=== PATIENT | male | born 1945 | race Caucasian/White ===

== ENCOUNTER → 2018-11-17 10:09 | Outpatient (CLI) | payer MEDICARE, SELFPAY ==
--- NOTE | 2018-11-17 10:12 | CI_ITS ---
Cerebrovascular Exam Indications: Follow-up carotid 433.10. 785.9 Bruit. IMPRESSIONS 1. The bilateral vertebral arteries are patent with normal antegrade flow. 2. Study suggests 50-69% stenosis involving the right internal carotid artery. No change from the study of 23-Dec-2015. 3. Study suggests 50-69% stenosis involving the left internal carotid artery. No change from the study of 23-Dec-2015. History: Risk factors: Hypertension. Hyperlipidemia. Carotid duplex study. Complete study and Doppler flow study including spectral analysis, color and ferro scale imaging. Height: Height: 170.2cm. Height: 67in. Weight: Weight: 89.8kg. Weight: 197.6lb. Body mass index: BMI: 31kg/m^2. Body surface area: BSA: 2.09m^2. Location: Vascular laboratory. Patient status: Outpatient. Tables: Arterial flow: + +--------+--------+ Location V sys V ed + +--------+--------+ Right CCA - proximal 96.3cm/s 12.3cm/s + +--------+--------+ Right CCA - distal 89.6cm/s 19.6cm/s + +--------+--------+ Right ECA 180cm/s 15.1cm/s + +--------+--------+ Right ICA - proximal 78.2cm/s 20.7cm/s + +--------+--------+ Right ICA - mid 177cm/s 46.8cm/s + +--------+--------+ Right ICA - distal 109cm/s 30.7cm/s + +--------+--------+ Right vertebral 39.3cm/s 9.6cm/s + +--------+--------+ Left CCA - proximal 93.3cm/s 23.1cm/s + +--------+--------+ Left CCA - distal 82.1cm/s 21.2cm/s + +--------+--------+ Left ECA 143cm/s 22.6cm/s + +--------+--------+ Left ICA - proximal 125cm/s 31.1cm/s + +--------+--------+ Left ICA - mid 134cm/s 30.4cm/s + +--------+--------+ Left ICA - distal 127cm/s 36.7cm/s + +--------+--------+ Left vertebral 37.4cm/s 13.6cm/s + +--------+--------+ Velocity ratios: + + + + + + Right, V sys Right, V ed Left, V sys Left, V ed + + + + + + Max ICA/dist CCA 1.98 2.39 1.63 1.73 + + + + + + (Report amended ) Electronically signed by: Jovani Helton [id number]
--- NOTE | 2018-11-17 10:12 | CA_ITS ---
PROCEDURE: 2-D M-mode and color Doppler study INDICATIONS FOR THE TEST: Chest pain COPD Heart Murmur Tobacco Smoking Palpitations Fatigue Syncope Edema HypertensionXDiabetes Mellitus Rheumatic Fever SOBXDOE Obesity HyperlipidemiaX Family History HD Additional History ABN EKG PATIENT INFORMATION HEIGHT: 67 WEIGHT:198 GENDER: Male B/P:170/72 2-D/M-MODE INTERPRETATION: 2-D MEASUREMENTS OBSERVED VALUES IN CMS Right Ventricular Dimension (RVDd) 2.8 Interventricular Septum (Thickness)(IVsd) .9 Left Ventricular Internal Dimensions(LVIDd) 5.0 Left Ventricular Posterior Wall (Thickness)(LVPWd) 1.2 Aortic Root 2.8 Aortic Cusp Separation 1.5 Left Atrial Dimensions (LAD) 3.6 2D 1. Left atrium is mildly enlarged, left ventricle is normal size, mild concentric left ventricular hypertrophy, visually estimated ejection fraction 55% with no regional wall motion abnormality. 2. The right atrium and right ventricle are mildly enlarged with normal contractility. 3. The aortic valve is thickened and calcified leaflet continue to display good mobility. 4. The mitral and tricuspid valve leaflets are minimally thickened. 5. The pulmonic valve is poorly visualized. 6. No significant pericardial effusion noted. DOPPLER INTERROGATION: Doppler interrogation of the aortic, mitral and tricuspid valvular presence of mild mitral and tricuspid regurgitation, tricuspid dictation jet velocity is inadequate for calculation of the right ventricular systolic pressure, grade 1 diastolic dysfunction seen with tissue Doppler evidence of raised left atrial pressure. CONCLUSION: 1. Mildly enlarged left atrium, normal left ventricular size, mild concentric left ventricular hypertrophy, visually estimated ejection fraction 55% with no regional wall motion abnormality, grade 1 diastolic dysfunction seen with tissue Doppler evidence of raised left atrial pressure. 2. Mildly enlarged right ventricle with normal contractility. 3. Mild mitral and tricuspid regurgitation 4. No significant pericardial effusion noted.
== END ==
PROVIDERS: PCP Family Medicine; Visit Provider Internal Medicine
DX: E78.5 Hyperlipidemia, unspecified (principal); I11.9 Hypertensive heart disease without heart failure; I25.10 Atherosclerotic heart disease of native coronary artery without angina pectoris; I65.23 Occlusion and stenosis of bilateral carotid arteries; R09.89 Other specified symptoms and signs involving the circulatory and respiratory systems
CPT/HCPCS: 93306; 93880

== ENCOUNTER → 2019-06-30 14:17 | Outpatient (CLI) | payer MEDICARE, SELFPAY ==
--- NOTE | 2019-06-30 14:18 | CA_ITS ---
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 Laterality: Bilateral Study Quality: Good Indications: bilateral ethan Doppler Spectral Velocity Analysis dICA (R) 153.70/39.90 cm/s dICA (L) 111.10/25.30 cm/s Raz (R) 119.70/38.80 cm/s Raz (L) 140.70/24.90 cm/s pICA (R) 141.80/29.50 cm/s pICA (L) 154.80/35.60 cm/s dCCA (R) 84.30/17.90 cm/s dCCA (L) 98.30/17.20 cm/s pCCA (R) 75.30/17.20 cm/s pCCA (L) 113.00/17.50 cm/s Vert (R) 34.30/10.30 cm/s Vert (L) 55.70/16.30 cm/s ICA/CCA 1.80 ICA/CCA 1.60 Findings Duplex evaluation demonstrates stenosis of the right proximal internal carotid artery in the range of 50-69% with PSV =140 cm/sec, EDV <100 cm/sec, and IC/CC Ratio <4.0.Duplex evaluation demonstrates stenosis of the left proximal internal carotid artery in the range of 50-69% with PSV =140 cm/sec, EDV <100 cm/sec, and IC/CC Ratio <4.0.Antegrade flow seen bilateral vertebral arteries.No significant change from last exam of 11/17/18 Conclusion Duplex evaluation demonstrates stenosis of the right proximal internal carotid artery in the range of 50-69% with PSV =140 cm/sec, EDV <100 cm/sec, and IC/CC Ratio <4.0.Duplex evaluation demonstrates stenosis of the left proximal internal carotid artery in the range of 50-69% with PSV =140 cm/sec, EDV <100 cm/sec, and IC/CC Ratio <4.0.Antegrade flow seen bilateral vertebral arteries.No significant change from last exam of 11/17/18 Electronically signed by : Steve Thibodeaux, 06/30/2019 17:19:01
== END ==
PROVIDERS: PCP Family Medicine; Visit Provider Internal Medicine Cardiovascular Disease
DX: R09.89 Other specified symptoms and signs involving the circulatory and respiratory systems (principal)
CPT/HCPCS: 93880

== ENCOUNTER → 2020-02-11 09:40 | Outpatient (CLI) | payer MEDICARE, SELFPAY ==
[2020-02-11 10:30] LABS: Basophils % 0.5 % (0.1-2.0); Eosinophils # 0.3 K/mm3 (0.0-0.4); Eosinophils % 4.7 % (0.1-12.0); Hematocrit 36.8 % (42.0-52.0); Hemoglobin 12.8 g/dL (14.1-18.0); Lymphocytes # 1.3 K/mm3 (0.7-4.5); Lymphocytes % 22.7 % (10-50); Mean Corpuscular HGB Conc 34.7 g/dL (31.8-35.4); Mean Corpuscular Hemoglobin 29.8 pg (27.0-31.2); Mean Corpuscular Volume 85.9 fl (80-94); Mean Platelet Volume 8.7 fl (7.4-10.4); Monocytes # 0.4 K/mm3 (0.1-1.0); Monocytes % 7.8 % (1.7-9.3); Neutrophils # 3.6 K/mm3 (1.8-7.8); Neutrophils % 64.3 % (37.0-80.0); Platelet Count 140 K/mm3 (142-424); Red Blood Count 4.29 M/mm3 (4.60-6.20); Red Cell Distribution Width 14.8 % (11.5-17.5); White Blood Count 5.6 K/mm3 (4.8-10.8)
[2020-02-11 11:16] LABS: Alanine Aminotransferase 26 U/L (12-78); Albumin Level 4.1 g/dl (3.5-5.0); Albumin/Globulin Ratio 1.6 (1.1-1.8); Alkaline Phosphatase 69 U/L (38-126); Anion Gap 13.3 mEq/L (5-15); Aspartate Amino Transferase 26 U/L (17-59); Bilirubin,Total 0.4 mg/dl (0.2-1.3); Blood Urea Nitrogen 23 mg/dl (9-20); Calcium 9.2 mg/dl (8.4-10.2); Carbon Dioxide 27 mmol/L (22.0-30.0); Chloride 106 mmol/L (98-107); Chol/HDL Ratio 3.3 (1-3.5); Cholesterol 111 mg/dl (140-200); Estimated Glomerular Filt Rate 59 ml/min (>60); GFR (African American) 71 ML/MIN (>60); Globulin 2.6 g/dL (1.3-3.2); Glucose 125 mg/dl (74-100); HDL Cholesterol 34 mg/dl (40-60); Potassium 4.3 mmoL/L (3.5-5.1); Sodium 142 mmol/L (136-145); Total Protein,Serum 6.7 g/dl (6.3-8.2); Triglycerides 76 mg/dl (30-150); VLDL Cholesterol 15 mg/dL (0-40)
[2020-02-11 11:27] LABS: Direct LDL Cholesterol 63.25 mg/dL (100-129)
[2020-02-11 11:47] LABS: Prostate Specific Ag Screen 1.2 ng/ml (0.0-4.0); Thyroid Stimulating Hormone 1.29 uIU/mL (0.465-4.68)
== END ==
PROVIDERS: Visit Provider Family Medicine
DX: I10 Essential (primary) hypertension (principal); E78.5 Hyperlipidemia, unspecified; I25.10 Atherosclerotic heart disease of native coronary artery without angina pectoris; G47.62 Sleep related leg cramps; N40.0 Benign prostatic hyperplasia without lower urinary tract symptoms; Z12.5 Encounter for screening for malignant neoplasm of prostate
CPT/HCPCS: 36415; 80053; 80061; 84443; 85025; G0103

== ENCOUNTER → 2020-08-05 14:50 | Outpatient (CLI) | payer MEDICARE, SELFPAY ==
--- NOTE | 2020-08-05 14:51 | CA_ITS ---
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: JOHNATHON Laterality: Bilateral Indications: RHETT Risk Factors Hypertension: Hyperlipidemia Ex smoker quit 25 years ago, CAD with 4 cardiac stents Doppler Spectral Velocity Analysis ECA (R) 217.30/15.30 cm/s ECA (L) 133.70/10.70 cm/s dICA (R) 127.00/31.70 cm/s dICA (L) 83.50/20.50 cm/s Raz (R) 129.30/25.90 cm/s Raz (L) 125.10/17.10 cm/s pICA (R) 158.70/37.60 cm/s pICA (L) 144.40/36.40 cm/s dCCA (R) 99.40/17.10 cm/s dCCA (L) 89.10/18.00 cm/s pCCA (R) 76.40/9.00 cm/s pCCA (L) 109.70/18.80 cm/s Vert (R) 30.50/7.50 cm/s Vert (L) 51.40/13.70 cm/s ICA/CCA 1.60 ICA/CCA 1.62 Findings Duplex evaluation demonstrates stenosis of the right proximal internal carotid artery in the range of 50-69% with PSV =140 cm/sec, EDV <100 cm/sec, and IC/CC Ratio <4.0. Duplex evaluation demonstrates stenosis of the left proximal internal carotid artery in the range of 50-69% with PSV =140 cm/sec, EDV <100 cm/sec, and IC/CC Ratio <4.0. Conclusion Duplex evaluation demonstrates stenosis of the right proximal internal carotid artery in the range of 50-69% with PSV =140 cm/sec, EDV <100 cm/sec, and IC/CC Ratio <4.0. Duplex evaluation demonstrates stenosis of the left proximal internal carotid artery in the range of 50-69% with PSV =140 cm/sec, EDV <100 cm/sec, and IC/CC Ratio <4.0. Electronically signed by : Jovani Helton MD 08/05/2020 17:57:02
== END ==
PROVIDERS: PCP Family Medicine; Visit Provider Internal Medicine Cardiovascular Disease
DX: I65.23 Occlusion and stenosis of bilateral carotid arteries; R09.89 Other specified symptoms and signs involving the circulatory and respiratory systems; R94.31 Abnormal electrocardiogram [ECG] [EKG]; E78.5 Hyperlipidemia, unspecified; I11.9 Hypertensive heart disease without heart failure; I25.10 Atherosclerotic heart disease of native coronary artery without angina pectoris
CPT/HCPCS: 93880

== ENCOUNTER → 2020-09-01 11:05 | Outpatient (CLI) | payer MEDICARE, SELFPAY ==
[2020-09-01 12:01] LABS: Hemoglobin A1C 5.9 % (4.0-6.0)
[2020-09-01 12:07] LABS: Microalbumin < 6.000 mg/L (0-16.7)
[2020-09-01 12:44] LABS: Chloride 108 mmol/L (98-107); Potassium 4.2 mmoL/L (3.5-5.1); Sodium 142 mmol/L (136-145)
[2020-09-01 12:46] LABS: Alanine Aminotransferase 24 U/L (12-78); Aspartate Amino Transferase 25 U/L (17-59); Blood Urea Nitrogen 17 mg/dl (9-20); Estimated Glomerular Filt Rate 73 ml/min (>60); GFR (African American) 88 ML/MIN (>60)
[2020-09-01 12:47] LABS: Albumin Level 4.5 g/dl (3.5-5.0); Albumin/Globulin Ratio 1.8 (1.1-1.8); Alkaline Phosphatase 70 U/L (38-126); Anion Gap 13.2 mEq/L (5-15); Bilirubin,Total 0.6 mg/dl (0.2-1.3); Calcium 9.3 mg/dl (8.4-10.2); Carbon Dioxide 25 mmol/L (22.0-30.0); Chol/HDL Ratio 3.9 (1-3.5); Cholesterol 146 mg/dl (140-200); Globulin 2.5 g/dL (1.3-3.2); Glucose 116 mg/dl (74-100); HDL Cholesterol 37 mg/dl (40-60); Magnesium 1.9 mg/dl (1.6-2.3); Triglycerides 106 mg/dl (30-150); VLDL Cholesterol 21 mg/dL (0-40)
[2020-09-01 12:58] LABS: Direct LDL Cholesterol 75.64 mg/dL (100-129)
== END ==
PROVIDERS: Visit Provider Family Medicine
DX: Z00.00 Encounter for general adult medical examination without abnormal findings (principal); I25.10 Atherosclerotic heart disease of native coronary artery without angina pectoris; I10 Essential (primary) hypertension; E78.5 Hyperlipidemia, unspecified; Z79.899 Other long term (current) drug therapy
CPT/HCPCS: 36415; 80053; 80061; 82043; 83036; 83735

== ENCOUNTER → 2021-03-02 12:57 | Outpatient (CLI) | payer MEDICARE, SELFPAY ==
--- NOTE | 2021-03-02 12:59 | CA_ITS ---
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 [employer] Operator: Sandrine Wolf RVT Laterality: Bilateral Study Quality: Good Indications: Carotid stenosis Risk Factors Hypertension: Hyperlipidemia EX SMOKER,CAD Doppler Spectral Velocity Analysis ECA (R) 237.10/19.50 cm/s ECA (L) 165.70/9.60 cm/s dICA (R) 188.10/44.70 cm/s dICA (L) 181.80/24.60 cm/s Raz (R) 191.70/31.70 cm/s Raz (L) 146.40/21.20 cm/s pICA (R) 98.40/24.60 cm/s pICA (L) 107.90/22.20 cm/s dCCA (R) 85.50/11.80 cm/s dCCA (L) 85.70/12.50 cm/s pCCA (R) 68.40/10.70 cm/s pCCA (L) 67.40/10.60 cm/s Vert (R) 30.70/14.10 cm/s Vert (L) 46.00/13.90 cm/s ICA/CCA 2.20 ICA/CCA 2.12 Findings Study suggests 50-69% stenosis of the right internal cartoid artery. Study suggests 50-69% stenosis of the left internal cartoid artery. Antegrade flow seen bilateral vertebral arteries. Conclusion Study suggests 50-69% stenosis of the right internal cartoid artery. Study suggests 50-69% stenosis of the left internal cartoid artery. Antegrade flow seen bilateral vertebral arteries. Electronically signed by : Jovani Helton MD 03/02/2021 16:36:37
== END ==
PROVIDERS: PCP Family Medicine; Visit Provider Internal Medicine Cardiovascular Disease
DX: E78.5 Hyperlipidemia, unspecified (principal); I11.9 Hypertensive heart disease without heart failure; I25.10 Atherosclerotic heart disease of native coronary artery without angina pectoris; R09.89 Other specified symptoms and signs involving the circulatory and respiratory systems; R94.31 Abnormal electrocardiogram [ECG] [EKG]; I65.23 Occlusion and stenosis of bilateral carotid arteries
CPT/HCPCS: 93880

== ENCOUNTER → 2021-05-09 13:59 | Outpatient (CLI) | payer MEDICARE, SELFPAY | PROVIDERS: PCP Family Medicine; Visit Provider Nurse Practitioner | DX: Z20.822 Contact with and (suspected) exposure to COVID-19 (principal) | CPT/HCPCS: C9803; U0003; U0005 ==

== ENCOUNTER → 2021-07-04 15:53 | Outpatient (CLI) | payer MEDICARE, SELFPAY | PROVIDERS: PCP Family Medicine; Visit Provider Nurse Practitioner | DX: U07.1 COVID-19 (principal) | CPT/HCPCS: C9803; U0003; U0005 ==

== ENCOUNTER → 2021-11-02 12:51 | Outpatient (CLI) | payer MEDICARE, SELFPAY ==
--- NOTE | 2021-11-02 12:59 | CA_ITS ---
FINAL REPORT TECHNIQUE: Sen scale, color and spectral doppler images of the bilateral carotid arteries were obtained. CLINICAL HISTORY: RHETT,HTN,HLD,EX SMOKER FINDINGS: Peak systolic velocity in the right internal carotid artery is 165 cm/sec. The internal carotid to common carotid artery ratio is 2.0. There is no significant carotid artery stenosis and no significant plaque formation. The right vertebral artery is normal in direction. Peak systolic velocity in the left internal carotid artery is 206 cm/sec. The internal carotid to common carotid artery ratio is 2.1. There is no significant carotid artery stenosis and no significant plaque formation. The left vertebral artery is normal in direction. IMPRESSION: Less than 50% right carotid stenosis. 50-69% left carotid stenosis. Reviewed, Interpreted and Dictated by Lelia Ramirez MD Transcribed by John Wilson Authenticated by Lelia Ramirez MD on 11/02/2021 02:56:14 PM [facility]
== END ==
PROVIDERS: PCP Family Medicine; Visit Provider Physician Assistant
DX: E78.5 Hyperlipidemia, unspecified (principal); I11.9 Hypertensive heart disease without heart failure; I25.10 Atherosclerotic heart disease of native coronary artery without angina pectoris; R09.89 Other specified symptoms and signs involving the circulatory and respiratory systems; R94.31 Abnormal electrocardiogram [ECG] [EKG]; I65.23 Occlusion and stenosis of bilateral carotid arteries
CPT/HCPCS: 93880

== ENCOUNTER → 2022-04-17 11:31 | Outpatient (CLI) | payer MEDICARE, SELFPAY ==
--- NOTE | 2022-04-17 11:36 | XR_ITS ---
FINAL REPORT CLINICAL HISTORY: PAIN FINDINGS: LEFT SHOULDER Three views of the left shoulder were obtained. There is no acute fracture or dislocation. The joint spaces are intact. There is no soft tissue abnormality. IMPRESSION: No acute bony abnormality. Reviewed, Interpreted and Dictated by Angel Cisneros MD Transcribed by Batsheva Parkinson Authenticated and [facility]
== END ==
LOC: RAD 11:33
PROVIDERS: PCP Family Medicine; Visit Provider Nurse Practitioner Family
DX: M25.512 Pain in left shoulder (principal)
CPT/HCPCS: 73030

== ENCOUNTER → 2022-05-01 10:46 | Outpatient (POV) | payer MEDICARE, SELFPAY | PROVIDERS: Visit Provider Dermatology | DX: Z00.00 Encounter for general adult medical examination without abnormal findings (principal) ==

== ENCOUNTER → 2022-12-27 10:18 | Outpatient (CLI) | payer MEDICARE, SELFPAY ==
--- NOTE | 2022-12-27 10:39 | CA_ITS ---
FINAL REPORT TECHNIQUE: Sen scale, color and spectral doppler images of the bilateral carotid arteries were obtained. CLINICAL HISTORY: RHETT COMPARISON: None FINDINGS: Peak systolic velocity in the right internal carotid artery is 149.3 cm/sec. The internal carotid to common carotid artery ratio is 2.12. There is moderate plaque formation present. The elevated velocities and plaque formation suggest 50 to 69% carotid artery stenosis. The right vertebral artery is normal in direction. Peak systolic velocity in the left internal carotid artery is 166.8 cm/sec. The internal carotid to common carotid artery ratio is 2.41. There is moderate plaque formation present. The elevated velocities and elevated velocities suggest 50 to 69% carotid artery stenosis. The left vertebral artery is normal in direction. IMPRESSION: There are elevated peak systolic velocities, ICA/ CCA ratios and moderate plaque present, most consistent with bilateral 50 to 69% carotid artery stenosis. Antegrade flow in the vertebral arteries bilaterally. Reviewed, Interpreted and Dictated by Lelia Ramirez MD Transcribed by Kirsten Guy Authenticated and [facility]
[2022-12-27 11:01] LABS: Hemoglobin A1C 5.7 % (4.0-6.0)
[2022-12-27 12:05] LABS: Alanine Aminotransferase 24 U/L (12-78); Albumin Level 4.3 g/dl (3.5-5.0); Albumin/Globulin Ratio 1.7 (1.1-1.8); Alkaline Phosphatase 85 U/L (38-126); Anion Gap 13.3 mEq/L (5-15); Aspartate Amino Transferase 22 U/L (17-59); Bilirubin,Total 0.4 mg/dl (0.2-1.3); Blood Urea Nitrogen 23 mg/dl (9-20); Calcium 9.1 mg/dl (8.4-10.2); Carbon Dioxide 25 mmol/L (22.0-30.0); Chloride 110 mmol/L (98-107); Chol/HDL Ratio 4.2 (1-3.5); Cholesterol 123 mg/dl (140-200); Estimated Glomerular Filt Rate 59 ml/min (>60); GFR (African American) 71 ML/MIN (>60); Globulin 2.5 g/dL (1.3-3.2); Glucose 110 mg/dl (74-100); HDL Cholesterol 29 mg/dl (40-60); Potassium 4.3 mmoL/L (3.5-5.1); Sodium 144 mmol/L (136-145); Total Protein,Serum 6.8 g/dl (6.3-8.2); Triglycerides 134 mg/dl (30-150); VLDL Cholesterol 27 mg/dL (0-40)
[2022-12-27 12:16] LABS: Direct LDL Cholesterol 65.34 mg/dL (100-129)
== END ==
PROVIDERS: PCP Family Medicine; Visit Provider Nurse Practitioner Family
DX: R73.9 Hyperglycemia, unspecified (principal); E78.5 Hyperlipidemia, unspecified; I11.9 Hypertensive heart disease without heart failure; I25.10 Atherosclerotic heart disease of native coronary artery without angina pectoris; R09.89 Other specified symptoms and signs involving the circulatory and respiratory systems; R94.31 Abnormal electrocardiogram [ECG] [EKG]; I65.23 Occlusion and stenosis of bilateral carotid arteries
CPT/HCPCS: 36415; 80053; 80061; 83036; 93880

== ENCOUNTER → 2023-04-01 17:32 | Outpatient (CLI) | payer MEDICARE, SELFPAY ==
--- NOTE | 2023-04-01 17:39 | XR_ITS ---
PROCEDURE INFORMATION: Exam: XR Left Shoulder Exam date and time: 04/01/2023 5:35 PM Age: 78 years old Clinical indication: Pain; Shoulder; Left TECHNIQUE: Imaging protocol: Radiologic exam of the left shoulder. Views: 2 or more views. COMPARISON: CR XR SHOULDER LT MIN 2V 04/17/2022 11:59 AM FINDINGS: Bones/joints: No acute fracture or malalignment. Glenohumeral and acromioclavicular joint degenerative changes. Soft tissues: Normal. IMPRESSION: No acute osseous findings.
--- NOTE | 2023-04-01 17:39 | XR_ITS ---
PROCEDURE INFORMATION: Exam: XR Lumbosacral Spine Exam date and time: 04/01/2023 5:31 PM Age: 78 years old Clinical indication: Low back pain TECHNIQUE: Imaging protocol: Radiologic exam of the lumbosacral spine. Views: 2 or 3 views. COMPARISON: No relevant prior studies available. FINDINGS: Bones/joints: No acute fracture. Minimal leftward curvature. Multilevel degenerative changes, severe at the lower lumbar levels. Soft tissues: Unremarkable. Vasculature: Abdominal aortic calcification. IMPRESSION: 1. No acute findings. 2. Multilevel spondylosis.
== END ==
PROVIDERS: PCP Family Medicine; Visit Provider Family Medicine
DX: M75.52 Bursitis of left shoulder (principal)
CPT/HCPCS: 72100; 73030

== ENCOUNTER 2024-04-10 14:54 | Outpatient (CLI) | payer MEDICARE, SELFPAY ==
--- OUTSIDE RECORDS SUMMARY | 2024-04-10 14:56 | XMS_ITS ---
Author Organization [facility] Address [address] [facility] [address] [facility] [address] [place] [id number] Care Team Providers Care Machine Room Engineer Name Role Phone Gaby Harris Primary Care Provider REASON FOR VISIT Message MEDICATIONS Medication SIG (Take, Route, Frequency, Duration) Notes Start Date End Date Status Promethazine-DM 6.25-15 MG/5ML 10 ml Orally every 6 hrs prn 02/18/2024 Active Encounters Encounter Location Date Provider Diagnosis [facility] [address] [facility] [address] [facility] [address] [place] [id number] 02/18/2024 Gaby Harris PLAN OF TREATMENT Medication Medication Name Sig Start Date Stop Date Notes Promethazine-DM 6.25-15 MG/5ML 10 ml Ora lly every 6 hrs prn 02/18/2024 Next Appt Details Provider Name:Dianna sky, 04/10/2024 02:00:00 PM, [address] [facility] [address] [facility], [address], [place], [phone],
--- OUTSIDE RECORDS SUMMARY | 2024-04-10 14:56 | XMS_ITS ---
Author Organization [facility] Address [address] [facility] [address] [facility] [address] [place] [id number] Care Team Providers Care Wind Operations Manager Name Role Phone Gaby Harris Primary Care Provider Dianna London [phone] ALLERGIES Allergen (clinical drug ingredient) Drug/Non Drug Allergy documented on EMR Reaction Allergy Type Onset Date Status polymyxin B Polymyxin B rash Drug Allergy Act nigel REASON FOR VISIT congestion Encounters Encounter Location Date Provider Diagnosis [facility] [address] [facility] [address] [facility] [address] [place] [phone] 03/06/2024 Dianna London PLAN OF TREATMENT Next Appt Details Provider Name:Dianna sky, 04/10/2024 02:00:00 PM, [address] [facility] [address] [facility], [address], [place], [phone],
--- OUTSIDE RECORDS SUMMARY | 2024-04-10 14:56 | XMS_ITS ---
Author Organization [facility] Address [address] [facility] [address] [place] [id number] Care Team Providers Care Traffic Analysis Technician Name Role Phone aGby Harris Primary Care Provider Surya Dianna Unavailable [phone] ALLERGIES Allergen (clinical drug ingredient) Drug/Non Drug Allergy documented on EMR Reaction Allergy Type Onset Date Status polymyxin B Polymyxin B rash Drug Allergy Act nigel REASON FOR VISIT pain in hip MEDICATIONS Medication SIG (Take, Route, Frequency, Duration) Notes Start Date End Date Status Lisinopril 20 MG 1 tab(s) orally once a day Active Carvedilol 6.25 MG 1 tab(s) orally 2 ti mes a day Active Terazosin HCl 10 MG TAKE 1 CAPSULE AT BE DTIME for 90 days Active rOPINIRole HCl 1 MG 1 tab(s) orally At B ed Time for 30 day(s) 05/24/2022 Active Pantoprazole Sodium 40 [...] MG 1 capsule Ora lly Once a day for 30 day(s) Active tiZANidine HCl 4 MG 1 tab(s) orally At B ed Time for 30 day(s) 08/07/2022 Active Fexofenadine HCl 180 MG 1 tablet swallow whole with water; do not take with fruit juices. Orally Once a day for 30 day(s) 09/13/2023 Active Flonase Allergy Relief 50 MCG/ACT 1 spray in each nostril Nasally Once a day for 30 day(s) 01/21/2023 Active PROBLEMS Problem Type ICD Code Onset Dates Problem Status W/U Status Risk SNOMED Code Notes Problem Lumbar back pain with radiculopathy affecting left lower extremity (M54.16) Active confirmed [id number] Problem Non-seasonal allergic rhinitis, unspecified trigger (J30.89) Active confirmed [id number] VITAL SIGNS Weight 214.2 lbs 04/10/2024 Blood pressure systolic 134 mm Hg 04/10/20 24 Blood pressure diastolic 60 mm Hg 024 Heart Rate 80 /min 04/10/2024 Height 66 in 04/10/2024 BMI 34.57 kg/m2 04/10/2024 Encounters Encounter Location Date Provider Diagnosis [facility] [address] [facility] [address] [place], [place] [id number] 04/10/2024 Dianna London Unspecified fall, in itial encounter W19.XXXA ; Lumbar back pain with radiculopathy affecting left lower extremity M54.16 ; Hip pain, left M25.552 ; Bony pelvic pain M89.8X8 and Non-seasonal allergic rhinitis, unspecified trigger J30.89 ASSESSMENTS Encounter Date Diagnosis Assessment Notes Treatment Notes Treatment Clinical Notes 04/10/2024 Unspecified fall, initial encounter (ICD-10 - W19.XXXA) 04/10/2024 Lumbar back pain wit h radiculopathy affecting left lower extremity (ICD-10 - M54.16) 04/10/2024 Hip pain, left (ICD-10 - M25.552) 04/10/2024 Bony pelvic pain (ICD-10 - M89.8X8) 04/10/2024 Non-seasonal allergi c rhinitis, unspecified trigger (ICD-10 - J30.89) PLAN OF TREATMENT Medication Medication Name Sig Start Date Stop Date Notes Fexofenadine HCl 180 MG 1 tablet swallow whole with water; do not take with fruit juices. Orally Once a day for 30 day(s) 09/13/2023 Flonase Allergy Relief 50 MCG/ACT 1 spray in each nostril Nasally Once a day for 30 day(s) 01/21/2023 Pending Test Test Name Order Date X ray : Spine, lumbar 04/10/2024 X ray : Hip, left 04/10/2024 X ray : Pelvis 04/10/2024 X ray : Spine, sacrum and coccyx 024 Next Appt Details Provider Name:Dianna sky, 04/10/2024 02:00:00 PM, [address] [facility] [address] [facility], [address] , [place], [place], [id number], History and Physical Notes * HPI (History of Present Illness) Category Sub-Category Detail Notes Hip/Thigh hip pain Pt is here today with c/o hip pain and leg pain. Pt sts both of his legs and hips have been in pain and sts it goes back and forth between each side. Pt sts he fell in the bed of his truck 2 months ago and sts he may have bruised his tailbone pt sts the pain in his leg has been ongoing for a while now
--- OUTSIDE RECORDS SUMMARY | 2024-04-10 14:57 | XMS_ITS | Patient Health Record ---
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 Gr. 1.020 Ketone neg Bili neg Gluc neg bacteria WBC RBC CBC Fingerstick (in house) Reviewed date:09/13/2023 04:21:39 PM Interpretation: Performing Lab: Notes/Report: wbc 5.9 3.5 - 10 lym 21.8 15 - 50 mid 6.4 2 - 15 gran 71.8 35 - 80 rbc 3.82 3.5 - 5.5 hgb 11.5 11.5 - 16.5 hct 34.2 35 - 55 mcv 89.5 75 - 100 mch 30.2 25 - 35 mchc 33.7 31 - 38 plat 119 100 - 400 P-Comprehensive Metabolic Pa shamar (CMP) Reviewed date:09/20/2023 09:14:29 AM Interpretation:gluc 103, Ca 8.3 Performing Lab: Notes/Report: Test performed by [facility], [facility] [address] [place] [address] , [address], [place] [address] John Saleh MD, Job Compositor CLIA: [id number] Sodium 144 135-145 mEq/L Potassium 4.5 3.5-5.3 mEq/L Chloride 108 97-108 mEq/L CO2 26 22-32 mEq/L Glucose 103 65-99 mg/dL BUN 21 8-23 mg/dL Creatinine 1.19 0.70-1.30 mg/dL Calcium 8.3 8.6-10.4 mg/dL eGFR by Creatinine 62 >59 mL/min/1.73m2 Protein 6.6 6.0-8.3 g/dL Albumin 4.4 3.5-5.3 g/dL Alkaline Phosphatase 65 40-129 IU/L ALT (SGPT) 19 <5-55 IU/L AST (SGOT) 22 <5-46 IU/L Bilirubin, Total 0.3 <0.2-1.2 mg/dL A/G Ratio 2.0 1.1-2.5 mg/dL P-Magnesium Reviewed date:09/20/2023 09:14:29 AM Interpretation:Normal Performing Lab: Notes/Report: Test performed by [facility] [address] [place] [address] , [address], [place] [address] John Saleh MD, Job Compositor CLIA: [id number] Magnesium 1.9 1.6-2.4 mg/dL P-TSH Reviewed date:09/20/2023 09:14:29 AM Interpretation:Normal Performing Lab: Notes/Report: Test performed by [facility] [address] [place] [address] , [address], [place] [address] John Saleh MD, Job Compositor CLIA: [id number] TSH 1.59 0.43-5.25 mU/L Covid test (in house) Reviewed date:02/11/2024 03:12:07 PM Interpretation:Positive Performing Lab: Notes/Report: Positive Result: pos CBC Fingerstick (in house) Reviewed date:07/01/2023 04:45:11 PM Interpretation: Performing Lab: Notes/Report: wbc 8.8 3.5 - 10 lym 14.0 15 - 50 mid 4.1 2 - 15 gran 81.9 35 - 80 rbc 3.61 3.5 - 5.5 hgb 11.1 11.5 - 16.5 hct 31.8 35 - 55 mcv 87.8 75 - 100 mch 30.7 25 - 35 mchc 34.9 31 - 38 plat 109 100 - 400 REASON FOR REFERRAL Diagnosis 1 Hesitancy of micturi tion (R39.11) Referral Organization [facility] Referring Provider First Name Dianna Referring Provider Last Name Surya 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 Referred Provider Specialty Urology General Notes Dianna London 2023 4:30:11 PM > Pt needs appt with urology at [facility], Stephanie Carvajal 09/16/2023 10:16:24 AM > Dr Bishop September 22 at 1:00 pt informed Referral Priority Routine MEDICATIONS Medication SIG (Take, Route, Frequency, Duration) Notes Start Date End Date Status Lisinopril 20 MG 1 tab(s) orally once a day Active Carvedilol 6.25 MG 1 tab(s) orally 2 ti mes a day Active Terazosin HCl 10 MG [facility] Active Metoprolol Succinate 25 MG 1 capsule Ora lly Once a day for 30 day(s) Active rOPINIRole HCl 1 MG 1 tab(s) orally At B ed Time for 30 day(s) 05/24/2022 Active Vitamin B Complex - as directed Orally Active tiZANidine HCl 4 MG 1 tab(s) orally At B ed Time for 30 day(s) 08/07/2022 Active Magnesium 200 MG 1 tab Orally Once a day Active Probiotic - as directed Orally Active Atorvastatin Calcium 80 MG 1 tab(s) oral ly once a day Active Fexofenadine HCl 180 MG 1 tablet swallow whole with water; do not take with fruit juices. Orally Once a day for 30 day(s) 09/13/2023 Active Flonase Allergy Relief 50 MCG/ACT 1 spray in each nostril Nasally Once a day for 30 day(s) 01/21/2023 Active Pantoprazole Sodium 40 MG 1 tab(s) orall y once a day Active Clopidogrel Bisulfate 75 MG 1 tab(s) ora lly once a day Active IMMUNIZATIONS Vaccine Route Administration Date Status Comme nts COVID 19 Pfizer Unknown 08/18/2020 Administered COVID 19 Pfizer IM Intramuscular 09/18/2020 Administered COVID 19 Pfizer Unknown 04/26/2021 Administered DT, 7 YEARS OR OLDER Unknown 08/12/1996 Administered Fluzone High Dose (65yr and older) Unknown 03/31/2020 Administered Fluzone High Dose (65yr and older) Unknown 04/19/2022 Administered Fluzone High Dose (65yr and older) Unknown 02/27/2023 Administered Shingrix Unknown 11/28/2022 Administered xFluzone (6mos and older)-trivalent Unknown 05/22/2018 Administered xFluzone High Dose-private (65yr&older) Unknown 03/16/2016 Administered SOCIAL HISTORY Sex Assigned At : Social History Observation Description Sex Assigned At Unknown PROBLEMS Problem Type ICD Code Onset Dates Problem Status W/U Status Risk SNOMED Code Notes Problem ASCVD (arteriosclerotic cardiovascular disease) (I25.10) Active confirmed Coronary arteriosclerosis (53044184) Problem Hypertension (I10) Active confirmed Hypertension (44954276) Problem Restless leg syndrome (G25.81) Active confirmed Restless l egs syndrome (94159790) Problem BPH (benign prostatic hyperplasia) (N40.0) Active confirmed Benign prostati c hyperplasia (017495432) Problem Nocturnal leg cramps (G47.62) Active confirmed Cramp in low er leg associated with rest (199074426) Problem Environmental allergies (Z91.09) Active confirmed Environmental allergy (069561266) Problem Lumbago with sciatica, right side (M54.41) Active confirmed 793111647 Problem Hesitancy of micturition (R39.11) Active confirmed 0271412 Problem GERD without esophagitis (K21.9) Active confirmed Gastroesophagea l reflux disease (244565150) Problem Other chronic pain (G89.29) Active confirmed 06877971 Problem Constipation, unspecified constipation type (K59.00) Active confirmed 77016429 Problem Seasonal rhinitis (J30.2) Active confirmed Seasonal allerg ic rhinitis (288503067) Problem BMI 31.0-31.9,adult (Z68.31) Active confirmed 407376276 Problem Dyslipidemia (E78.5) Active confirmed Dyslipidemia (983105808) Problem Benign prostatic hyperplasia with lower urinary tract symptoms (N40.1) Active confirmed 641047278 Problem Seasonal allergic rhinitis, unspecified trigger (J30.2) Active confirmed 004808556 Problem Non-seasonal allergic rhinitis, unspecified trigger (J30.89) Active confirmed 22647385 Problem Lumbar back pain with radiculopathy affecting left lower extremity (M54.16) Active confirmed 256150222 Problem Asymptomatic bilateral carotid artery stenosis (I65.23) Active confirmed Occlusion and stenosis of multiple and bilateral cerebral arteries (143429023) VITAL SIGNS Heart Rate 80 /min 04/10/2024 Blood pressure diastolic 60 mm Hg 04/10/2024 Height 66 in 04/10/2024 Blood pressure systolic 134 mm Hg 04/10/2024 Weight 214.2 lbs 04/10/2024 BMI 34.57 kg/m2 04/10/2024 Encounters Encounter Location Date Provider Diagnosis [facility] [address] [place], [place] [id number] 04/11/2023 R Jose Steven Restless leg syndrom e G25.81 [facility] [address] [place], [place] [id number] 05/09/2023 Toyin Montgomery [facility] [address] [place], [place] [id number] 07/01/2023 Shayna Levy URI (upper respirato ry infection) J06.9 [facility] [address] [place], [place] [id number] 09/13/2023 Dianna Crowdy Leg cramps R25.2 ; Seasonal allergic rhinitis, unspecified trigger J30.2 ; BPH (benign prostatic hyperplasia) N40.0 and Hesitancy of micturition R39.11 [facility] [address] [place], [place] [id number] 09/20/2023 Dianna Crowdy [facility] [address] [place], [place] [id number] 11/22/2023 R Jose Steven Leg cramps R25.2 [facility] [address] [place], [place] [id number] 02/11/2024 R Jose Steven COVID-19 virus infection U07.1 [facility] [address] [facility] [address] [place], [place] [id number] 02/18/2024 Gaby Harris [facility] [address] [place], [place] [id number] 03/06/2024 Dianna London [facility] [address] [facility] [address] [place], [place] [id number] 04/10/2024 Dianna London Unspecified fall, initial encounter W19.XXXA ; Lumbar back pain with radiculopathy affecting left lower extremity M54.16 ; Hip pain, left M25.552 ; Bony pelvic pain M89.8X8 and Non-seasonal allergic rhinitis, unspecified trigger J30.89 ASSESSMENTS Encounter Date Diagnosis Assessment Notes Treatment Notes Treatment Clinical Notes 04/10/2024 Unspecified fall, initial encounter (ICD-10 - W19.XXXA) 07/01/2023 URI (upper respiratory infection) (ICD-10 - J06.9) fluids, rest, supportive measures for fever/symptom relief, Game Ear recommended for hearing deficit 04/11/2023 Restless leg syndrome (ICD-10 - G25.81) 09/13/2023 Leg cramps (ICD-10 - R25.2) 09/13/2023 Seasonal allergic rhinitis, unspecified trigger (ICD-10 - J30.2) 11/22/2023 Leg cramps (ICD-10 - R25.2) 02/11/2024 COVID-19 virus infection (ICD-10 - U07.1) Recommend rest, good fluid intake and vitamin C, vitamin D. He should not return to work until his symptoms are improving and he is fever free for 24 hours. 09/13/2023 BPH (benign prostatic hyperplasia) (ICD-10 - N40.0) 04/10/2024 Lumbar back pain with radiculopathy affecting left lower extremity (ICD-10 - M54.16) 09/13/2023 Hesitancy of micturition (ICD-10 - R39.11) 04/10/2024 Hip pain, left (ICD-10 - M25.552) 04/10/2024 Bony pelvic pain (ICD-10 - M89.8X8) 04/10/2024 Non-seasonal allergic rhinitis, unspecified trigger (ICD-10 - J30.89) PLAN OF TREATMENT Pending Test Test Name Order Date X ray : Spine, lumbar 04/10/2024 X ray : Hip, left 04/10/2024 X ray : Pelvis 04/10/2024 X ray : Shoulder, left 04/01/2023 colonoscopy 04/17/2022 X ray : Spine, sacrum and coccyx 024 Cologuard 04/01/2023 Next Appt Details Provider Name:Dianna Barrientos Hernandez sky, 04/10/2024 02:00:00 PM, [address], [place], [place], [id number], Insurance Providers Payer Name Payer Address Payer Phone Subscriber Number Group Number Insured Name Patient Relationship to Insured Coverage Start Date Coverage End Date [employer] (MEDICAR E) [address] [address] [place] [address] [phone] [id number] GRACIE BARRETO Self - patient is the insured MEDICATIONS ADMINISTERED Medication Instructions Date of Administration Dosage Notes Depo- Medrol 40 mg/ml 08/07/2022 1.5 mL MEDICAL (GENERAL) HISTORY Medical History History ICD Code ASCVD Hypertension Hyperlipidemia GERD Carotid Stenosis Benign Prostatic Hyperplasia Surgical History Surgery Date(Month/Year) Lumbar Disc Coronary Artery Stents x4
--- NOTE | 2024-04-10 14:59 | XR_ITS ---
FINAL REPORT CLINICAL HISTORY: lower back pain FINDINGS: 5 views of the lumbar spine were obtained. There is mild leftward curvature. Mild to moderate degenerative changes are seen with osteophytes. There is facet arthropathy of the lower lumbar spine. There is no evidence of fracture or dislocation. The vertebral alignment is normal. Vascular calcifications are noted. No paraspinous soft tissue abnormalities identified. IMPRESSION: Degenerative changes without acute bony abnormality. Reviewed, Interpreted and Dictated by Jose Ramon Lamb III, MD Transcribed by Tiffany Caruso Authenticated and [facility]
--- NOTE | 2024-04-10 14:59 | XR_ITS ---
FINAL REPORT CLINICAL HISTORY: Lt hip pain FINDINGS: LEFT HIP 3 views of the left hip are obtained. There are mild degenerative changes of the hips bilaterally. There is no acute fracture or dislocation. Visualized joint spaces are normally aligned. There is no acute soft tissue abnormality. IMPRESSION: No acute bony abnormality. Reviewed, Interpreted and Dictated by Jose Ramon Lamb III, MD Transcribed by Tiffany Caruso Authenticated and . [facility]
--- NOTE | 2024-04-10 14:59 | XR_ITS ---
FINAL REPORT CLINICAL HISTORY: Lower back pain FINDINGS: SACRUM AND COCCYX 3 views were obtained. There is no acute fracture or dislocation. Visualized joint spaces are normally aligned. Soft tissues are unremarkable. IMPRESSION: No acute bony abnormality. Reviewed, Interpreted and Dictated by Jose Ramon Lamb III, MD Transcribed by Tiffany Caruso Authenticated and [facility]
== END 2024-04-10 23:59 | disposition home or self-care (01) ==
LOC: RAD 14:55
PROVIDERS: PCP Family Medicine; Visit Provider Physician Assistant
DX: M54.16 Radiculopathy, lumbar region (principal); M25.552 Pain in left hip; M89.8X8 Other specified disorders of bone, other site
CPT/HCPCS: 72110; 72220; 73502

== ENCOUNTER 2025-03-16 14:53 | Outpatient (CLI) | payer MEDICARE, SELFPAY ==
--- OUTSIDE RECORDS SUMMARY | 2024-03-06 07:30 | XMS_ITS ---
Author Organization [facility] Address [address] [facility] [address] [place] [phone] Care Team Providers Care Pulmonary Care Nurse Name Role Phone Gaby Harris Primary Care Provider Dianna London [phone] Allergies Allergen (clinical drug ingredient) Drug/Non Drug Allergy documented on EMR Reaction Allergy Type Onset Date Status polymyxin B Polymyxin B rash Drug Allergy Act nigel REASON FOR VISIT congestion Encounters Encounter Location Date Provider Diagnosis Crista [facility] [address] [place] [phone] 03/06/2024 Dianna London Plan Of Treatment No Information Progress Notes * GRACIE BARRETODOB:1945 (80 yo M)Acc No.[id number]:03/06/2024 Progress Notes Patient: GRACIE SHIELDS Provider: SVETA Healy :1945 A ge:79 Y S ex:Male Date:03/06/2024 Address:[address] [id number] Pcp:Gaby Harris Subjective: * Chief Complaints: * [...] * Procedure Codes: * Electronic signature of SVETA Kidd on 03/16/2025 at 02:56 PM EDT Sign off status: Pending * Provider: SVETA Healy Date: 0 03/06/2024 Generated for Trudy green/Carlitos/Bhupinder on: 1 02:56 PM EDT
--- OUTSIDE RECORDS SUMMARY | 2024-04-10 10:00 | XMS_ITS ---
[facility] Organization [facility] Address [address] [facility] [address] [place] [id number] Care Team Providers Care Material Loader Name Role Phone Gaby Harris Primary Care Provider Dianna London [phone] Allergies Allergen (clinical drug ingredient) Drug/Non Drug Allergy documented on EMR Reaction Allergy Type Onset Date Status polymyxin B Polymyxin B rash Drug Allergy Act nigel Results Component Value Reference Range Notes X ray : Spine, lumbar Reviewed date:04/17/2024 08:57:53 AM Interpretation:arthritis but no fracture Performing Lab: Notes/Report: arthritis but no fracture X ray : Hip, left Reviewed date:04/17/2024 08:57:53 AM Interpretation:no fx Performing Lab: Notes/Report: no fx X ray : Pelvis Reviewed date:04/20/2024 10:22:14 AM Interpretation:see left hip Performing Lab: Notes/Report: see left hip X ray : Spine, sacrum and co ccyx Reviewed date:04/17/2024 08:57:53 AM Interpretation:no fx Performing Lab: Notes/Report: no fx X ray : Spine, sacrum and co ccyx Reviewed date:04/17/2024 08:57:53 AM Interpretation:no fx Performing Lab: Notes/Report: no fx REASON FOR VISIT pain in hip Medications Medication SIG (Take, Route, Frequency, Duration) Notes Start Date End Date Status Lisinopril 20 MG 1 tab(s) orally once a day Active Carvedilol 6.25 MG 1 tab(s) orally 2 ti mes a day Active Terazosin HCl 10 MG TAKE 1 CAPSULE AT BEDTIME; Duration: 90 days Active rOPINIRole HCl 1 MG 1 tab(s) orally At B ed Time; Duration: 30 day(s) 05/24/2022 Active Pantoprazole Sodium 40 MG 1 tab(s) orall y once a day Active Vitamin B Complex - as directed Orally Active Magnesium 200 MG 1 tab Orally Once a day Active Probiotic - as directed Orally Active Atorvastatin Calcium 80 MG 1 tab(s) oral ly once a day Active Clopidogrel Bisulfate 75 MG 1 tab(s) ora lly once a day Active Metoprolol Succinate 25 MG 1 capsule Ora lly Once a day; Duration: 30 day(s) Active tiZANidine HCl 4 MG 1 tab(s) orally At B ed Time; Duration: 30 day(s) 08/07/2022 Active Fexofenadine HCl 180 MG 1 tablet swallow whole with water; do not take with fruit juices. Orally Once a day; Duration: 30 day(s) 09/13/2023 Active Flonase Allergy Relief 50 MCG/ACT 1 spray in each nostril Nasally Once a day; Duration: 30 day(s) 01/21/2023 Active Problems Problem Type SNOMED Code ICD Code Onset Dates Problem Status W/U Status Risk Notes Problem Lumbar radiculopathy (747299678) Lumbar back pain with radiculopathy affecting left lower extremity (M54.16) Active confirmed Problem Allergic rhinitis (41964117) Non-seasonal allergic rhinitis, unspecified trigger (J30.89) Active confirmed Vital Signs Blood pressure systolic 134 mm Hg 04/10/20 24 Blood pressure diastolic 60 mm Hg 024 Heart Rate 80 /min 04/10/2024 Height 66 in 04/10/2024 Weight 214.2 lbs 04/10/2024 BMI 34.57 kg/m2 04/10/2024 Encounters Encounter Location Date Provider Diagnosis [facility] [address] [place], [place] [id number] 04/10/2024 Dianna London Unspecified fall, in itial encounter W19.XXXA ; Lumbar back pain with radiculopathy affecting left lower extremity M54.16 ; Hip pain, left M25.552 ; Bony pelvic pain M89.8X8 and Non-seasonal allergic rhinitis, unspecified trigger J30.89 Assessments Encounter Date Diagnosis (ICD Code) Assessment Notes Treatment Notes Treatment Clinical Notes Section Notes 04/10/2024 Unspecified fall, initial encounter (ICD-10 - W19.XXXA) 04/10/2024 Lumbar back pain with radiculopathy affecting left lower extremity (ICD-10 - M54.16) 04/10/2024 Hip pain, left (ICD-10 - M25.552) 04/10/2024 Bony pelvic pain (ICD-10 - M89.8X8) 04/10/2024 Non-seasonal allergic rhinitis, unspecified trigger (ICD-10 - J30.89) Plan Of Treatment Medication Medication Name Sig Start Date Stop Date Notes Fexofenadine HCl 180 MG 1 tablet swallow whole with water; do not take with fruit juices. Orally Once a day; Duration: 30 day(s) 09/13/2023 Flonase Allergy Relief 50 MCG/ACT 1 spray in each nostril Nasally Once a day; Duration: 30 day(s) 01/21/2023 Next Appt Details Follow Up: via phone to repo rt test results, Reason: Progress Notes * GRACIE BARRETODOB:1945 (80 yo M)Acc No.[id number]:04/10/2024 Progress Notes Patient: GRACIE SHIELDS Provider: SVETA Healy :1945 A ge:79 Y S ex:Male Date:04/10/2024 Address:[address] [place], [place] [phone] Pcp:Gaby Harris Subjective: * Chief Complaints: * 1 . Pain in hip. * HPI: H ip/Thigh: 79 year old male presents with c/o hip pain P t is here today with c/o hip pain and leg pain. Pt sts both of his legs and hips have been in pain and sts it goes back and forth between each side but seems to be worse on the left. P t sts he fell in the bed of his truck about a m onth ago and sts he may have bruised his tailbone pt sts the pain in his leg has been ongoing since that fall. E NT/respiratory: Pt would also like to talk about his eyes watering and ears ringing along with some drainage in nose. * ROS: D ERMATOLOGY: no R austin. n o H dana. G ASTROENTEROLOGY: no N ausea. n o V omiting. U ROLOGY: no D ifficulty urinating. n o B lood in urine. * Medical History: A SCVD, Hypertension, Hyperlipidemia, GERD, Carotid Stenosis, Benign Prostatic Hyperplasia. * Surgical History: L umbar Disc , Coronary Artery Stents x4 . * Family History: F ather: 54 yrs, stroke, diagnosed with Diabetes, Hypertension. M other: 77 yrs, kidney failure, diagnosed with Diabetes. 3 daughter(s) . . * Social History: C URRENT TOBACCO USE: No . C affeine: yes, frequency: daily. Home smoke detector use: yes. Alcohol: no. * Medications: T aking Metoprolol Succinate 25 MG Capsule ER 24 Hour Sprinkle 1 capsule Orally Once a day , Taking Fexofenadine HCl 180 MG Tablet 1 tablet swallow whole with water; do not take with fruit juices. Orally Once a day , Taking Flonase Allergy Relief 50 MCG/ACT Suspension 1 spray in each nostril Nasally Once a day , Taking Vitamin B Complex - Tablet as directed Orally , Taking Probiotic - Tablet Chewable as directed Orally , Taking Magnesium 200 MG Tablet 1 tab Orally Once a day , Taking Atorvastatin Calcium 80 MG Tablet 1 tab(s) orally once a day , Taking Clopidogrel Bisulfate 75 MG Tablet 1 tab(s) orally once a day , Taking Pantoprazole Sodium 40 MG Tablet Delayed Release 1 tab(s) orally once a day , Taking Carvedilol 6.25 MG Tablet 1 tab(s) orally 2 times a day , Taking Lisinopril 20 MG Tablet 1 tab(s) orally once a day , Taking rOPINIRole HCl 1 MG Tablet 1 tab(s) orally At Bed Time , Taking Terazosin HCl 10 MG Capsule TAKE 1 CAPSULE AT BEDTIME , Taking tiZANidine HCl 4 MG Tablet 1 tab(s) orally At Bed Time , Medication List reviewed and reconciled with the patient * Allergies: P olymyxin B: rash. Objective: * Vitals: W t:214.2, Temp:98.2, BP:134/60, HR:80, O2 Sat:95% on RA, Nurse:LEVON, Ht: 66, BMI:34.57. * Examination: G eneral Examination: General Appearance: N AD. H EENT: sclera and conjunctiva clear, PERRLA, TM's normal, translucent, nose congested. O ral cavity: mucosa moist and WNL, no erythema. N julio cesar: s upple, no lymphadenopathy. C hest: n ormal shape and expansion. H eart: R SR. L ungs: c lear to auscultation. E xtremities: tender along left hip and pelvic area. L ower back: Inspection: normal curvature of spine. P alpation:? ttp along the lower lumbar spine and paraspinal muscles, radiation down b ilateral legs but worse on the left. S traight leg raising test: positive at 45 degrees on left. M otor system: decreased hamstring strength on left, decreased quadriceps strength on left. S ensory exam: normal. G ait: favoring affected side. R heydi of motion: decreased at terminal ranges. Assessment: * Assessment: 1. U nspecified fall, initial encounter - W19.XXXA (Primary) 2 . L umbar back pain with radiculopathy affecting left lower extremity - M54.16 3 . H ip pain, left - M25.552 4 . B sendy pelvic pain - M89.8X8 5 . N on-seasonal allergic rhinitis, unspecified trigger - J30.89 Plan: * Treatment: ?Imaging: X ray : Spine, sacrum and coccyx (Performed Date - 04/10/2024)?no fx* Dianna London S 04/17/2024 8: 57:47 AM > see TE 2.?Hip pain, left?Imaging: X ray : Hip, left (Performed Date - 04/10/2024)?no fx* Dianna London S 04/17/2024 8: 57:47 AM > see TE 3.?Bony pelvic pain?Imaging: X ray : Hip, left (Performed Date - 04/10/2024)?no fx* Dianna London S 04/17/2024 8: 57:47 AM > see TE ?Imaging: X ray : Pelvis (Performed Date - 04/20/2024)?see left hip4.?Non- seasonal allergic rhinitis, unspecified trigger? Refill Fexofenadine HCl Tablet, 180 MG, 1 tablet swallow whole with water; do not take with fruit juices., Orally, Once a day, 30 day(s), 30, Refills 2;?Refill Flonase Allergy Relief Suspension,50 MCG/ACT, 1 spray in each nostril, Nasally, Once a day, 30 day(s), 1, Refills 2.?? * Procedure Codes: 9 4760 PULSE OX * Follow Up: v ia phone to report test results * Images: Billing Information: * Visit Code: 85305 Office Visit, Est Pt., Level 4. * Procedure Codes: 34066 PULSE OX. * Electronic signature of SVETA Kidd on 03/16/2025 at 02:55 PM EDT Sign off status: Pending * Provider: SVETA Healy Date: 06/10/2023 Generated for Trudy green/Carlitos/eTransmitting on: 02:55 PM EDT History and Physical Notes * HPI (History of Present Illness) Category Sub-Category Detail Notes Category Not es Hip/Thigh hip pain Pt is here today with c/o hip pain and leg pain. Pt sts both of his legs and hips have been in pain and sts it goes back and forth between each side but seems to be worse on the left. Pt sts he fell in the bed of his truck about a month ago and sts he may have bruised his tailbone pt sts the pain in his leg has been ongoing since that fall Examination Category Sub-Category Detail Notes Category Not es General Examination HEENT: sclera and c onjunctiva clear, PERRLA, TM's normal, translucent, nose congested Heart: RSR Lungs: clear to auscultatio n Extremities: tender along left hi p and pelvic area General Appearance: NAD Neck: supple, no lymphaden opathy Oral cavity: mucosa moist and WNL , no erythema Chest: normal shape and exp ansion Lower back Straight leg raising test: positive at 45 degrees on left Motor system: decreased hamstring strength on left, decreased quadriceps strength on left Sensory exam: normal Gait: favoring affected si de Inspection: normal curvature of spine Palpation: ttp along the lower lumbar spine and paraspinal muscles, radiation down bilateral legs but worse on the left Range of motion: decreased at termina l ranges
--- OUTSIDE RECORDS SUMMARY | 2024-08-12 05:15 | XMS_ITS ---
Author Organization 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 Role Phone Gaby Harris Primary Care Provider [phone] Dianna London [phone] Allergies Allergen (clinical drug ingredient) Drug/Non Drug Allergy documented on EMR Reaction Allergy Type Onset Date Status polymyxin B Polymyxin B rash Drug Allergy Act nigel REASON FOR VISIT poss sinus infection Encounters Encounter Location Date Provider Diagnosis [place] [address] [facility] [address] [place] [phone] 08/12/2024 Dianna London Plan Of Treatment No Information Progress Notes * GRACIE BARRETODOB:1945 (80 yo M)Acc No.[id number]:08/12/2024 Progress Notes Patient: GRACIE SHIELDS Provider: SVETA Healy :1945 A ge:79 Y S ex:Male Date:08/12/2024 Address:[address] [id number] Pcp:Gaby Harris Subjective: * Chief Complaints: * [...] 08/12/2024 Generated for Trudy green/Carlitos/Memeitting on: 1 02:55 PM EDT
--- OUTSIDE RECORDS SUMMARY | 2024-08-13 11:15 | XMS_ITS ---
Author Organization [facility] Address [address] [place] [phone] Care Team Providers Care Clinical Staff Anesthesiologist Name Role Phone Gaby Harris Primary Care Provider Surya Dianna Unavailable [phone] Allergies Allergen (clinical drug ingredient) Drug/Non Drug Allergy documented on EMR Reaction Allergy Type Onset Date Status polymyxin B Polymyxin B rash Drug Allergy Act nigel Results Component Value Reference Range Notes Influenza Screen (in house) Reviewed date:08/14/2024 08:36:57 AM Interpretation: Performing Lab: Notes/Report: results Pos A REASON FOR VISIT poss sinus infection Medications Medication SIG (Take, Route, Frequency, Duration) Notes Start Date End Date Status Terazosin HCl 10 MG TAKE 1 CAPSULE AT BEDTIME; Duration: 90 days Active Tamiflu 75 MG 1 capsule Orally Twi ce a day; Duration: 5 day(s) 08/13/2024 Active Benzonatate 200 MG 1 capsule Orally Thr ee times a day 08/13/2024 Active Flonase Allergy Relief 50 MCG/ACT 1 spray in each nostril Nasally Once a day; Duration: 30 day(s) 01/21/2023 Active Carvedilol 6.25 MG 1 tab(s) orally 2 ti mes a day Active Lisinopril 20 MG 1 tab(s) orally once a day Active Fexofenadine HCl 180 MG 1 tablet swallow whole with water; do not take with fruit juices. Orally Once a day; Duration: 30 day(s) 09/13/2023 Active rOPINIRole HCl 1 MG 1 tab(s) orally At B ed Time; Duration: 30 day(s) 05/24/2022 Active tiZANidine HCl 4 MG 1 tab(s) orally At B ed Time; Duration: 30 day(s) 08/07/2022 Active Atorvastatin Calcium 80 MG 1 tab(s) oral ly once a day Active Clopidogrel Bisulfate 75 MG 1 tab(s) ora lly once a day Active Probiotic - as directed Orally Active Magnesium 200 MG 1 tab Orally Once a day Active Pantoprazole Sodium 40 MG 1 tab(s) orall y once a day Active Metoprolol Succinate 25 MG 1 capsule Ora lly Once a day; Duration: 30 day(s) Active Vitamin B Complex - as directed Orally Active Vital Signs Blood pressure systolic 130 mm Hg 08/14/19 25 Blood pressure diastolic 70 mm Hg 025 Heart Rate 67 /min 08/13/2024 Height 66 in 08/13/2024 Weight 213.2 lbs 08/13/2024 BMI 34.41 kg/m2 08/13/2024 Encounters Encounter Location Date Provider Diagnosis [facility] [address], [place] [phone] 08/13/2024 Dianna London Influenza A J10. 1 Assessments Encounter Date Diagnosis (ICD Code) Assessment Notes Treatment Notes Treatment Clinical Notes Section Notes 08/13/2024 Influenza A (ICD-10 - J10.1) Rest, fluids, tylenol or motrin for fevers. Home until fever free for 24-48 hours without the use of medication. Plan Of Treatment Medication Medication Name Sig Start Date Stop Date Notes Tamiflu 75 MG 1 capsule Orally Twi ce a day; Duration: 5 day(s) 08/13/2024 Benzonatate 200 MG 1 capsule Orally Three times a day 11/2024 Treatment Notes Assessment Notes Influenza A Rest, fluids, tyleno l or motrin for fevers. Home until fever free for 24-48 hours without the use of medication. Next Appt Details Follow Up: prn, Reason: Progress Notes * TY BARRETOLIYADOB:1945 (80 yo M)Acc No.[id number]:08/13/2024 Progress Notes Patient: GRACIE SHIELDS Provider: SVETA Healy :1945 A ge:79 Y S ex:Male Date:08/13/2024 [facility] [place] [id number] Pcp:Gaby Harris Subjective: * Chief Complaints: * 1 . Poss sinus infection. * HPI: E NT/respiratory: 79 year old male presents with c/o nasal congestion P t complains of nasal congestion that started yesterday. Associated with fever, headache, cough, nausea and nasal drainage. * ROS: D ERMATOLOGY: no R austin. [...] capsule Orally Once a day , Taking Vitamin B [...] tab(s) orally At Bed Time , Taking tiZANidine HCl 4 MG Tablet 1 tab(s) orally At Bed Time , Taking Fexofenadine HCl 180 MG Tablet 1 tablet swallow whole with water; do not take with fruit juices. Orally Once a day , Taking Flonase Allergy Relief 50 MCG/ACT Suspension 1 spray in each nostril Nasally Once a day , Taking Terazosin HCl 10 MG Capsule TAKE 1 CAPSULE AT BEDTIME , Discontinued Medrol 4 MG Tablet Therapy Pack as directed orally daily , Medication List reviewed and reconciled with the patient * Allergies: P olymyxin B: rash. Objective: * Vitals: W t:213.2, Temp:98.4, BP:130/70, HR:67, O2 Sat:94% on RA, Nurse:brandyn, Ht: 66, BMI:34.41. * Examination: E NT/Respiratory: General Appearance: N AD. E ars: a uditory canals normal bilaterally, TM's WNL. N ose : turbinates red, congested. S inuses : non tender bilaterally. O ral cavity : erythema without exudate on pharynx. N julio cesar : n o cervical lymphadenopathy. H eart : R RR, normal S1 S2, no murmurs. L ungs: c lear to auscultation bilaterally. Assessment: * Assessment: 1. I tyler Marquez - J10.1 (Primary) Plan: * Treatment: Value Reference Range r esults Pos A * Yadira Purdy 08/13/2024 3:33:20 PM > , Provider reviewed results while patient in office.Dianna [place] 08/14/2024 8:36:53 AM > Notes: Rest, fluids, tylenol or motrin for fevers. Home until fever free for 24- 48 hours without the use of medication.?? * Procedure Codes: G 2211 Complex e/[place], [address] [place], [address] Flu Test- Nasal Swab, Modifiers: QW , 3075F SYST BP GE 130 - 139MM HG, 3078F DIAST BP < 80 MM HG * Follow Up: p rn * Images: Billing Information: * Visit Code: 78282 Office Visit, Est Pt., Level 3. * Procedure Codes: G2211 Complex e/[place]. [address] [place] [address] Flu Test- Nasal Swab. Modifiers: QW 3075F SYST BP GE 130 - 139MM HG. 3078F DIAST BP < 80 MM HG. * Electronic signature of SVETA Kidd on 03/16/2025 at 02:55 PM EDT Sign off status: Pending * Provider: SVETA Healy Date: 0 08/13/2024 Generated for Trudy green/Carlitos/eTstevesmitting on: 1 02:55 PM EDT History and Physical Notes * HPI (History of Present Illness) Category Sub-Category Detail Notes Category Not es ENT/respiratory nasal congestion Pt complains of nasal congestion that started yesterday. Associated with fever, headache, cough, nausea and nasal drainage Examination Category Sub-Category Detail Notes Category Not es ENT/Respiratory Oral cavity : erythema without exudate on pharynx Sinuses : non tender bilateral ly Ears: auditory canals norm al bilaterally, TM's WNL Neck : no cervical lymphade nopathy Heart : RRR, normal S1 S2, n o murmurs Lungs: clear to auscultatio n bilaterally General Appearance: NAD Nose : turbinates red, chon ested
--- OUTSIDE RECORDS SUMMARY | 2024-10-08 10:30 | XMS_ITS ---
Author Organization [facility] Address [address] [facility] [address] [place] [id number] Care Team Providers Care Mattress Stuffer Name Role Phone Gaby Harris Primary Care Provider [phone] Surya Dianna Unavailable [phone] Allergies Allergen (clinical drug ingredient) Drug/Non Drug [...] HCl 10 MG TAKE 1 CAPSULE AT [facility] (NEED MD APPOINTMENT); Duration: 30 Active Metoprolol [...] 10/08/2024 Encounters Encounter Location Date Provider Diagnosis [facility] [address], [place] [phone] 10/08/2024 Dianna London Acute URI J06.9 Assessments [...] Notes * MYRANDA BARRETO:1945 (80 yo M)Acc No.[id number]:10/08/2024 Progress Notes Patient: GRACIE SHIELDS Provider: SVETA Healy :1945 A ge:79 Y S ex:Male Date:10/08/2024 Address:[address] [place] [address] Jonathan perea, [id number] Pcp:Gaby Harris Subjective: * Chief Complaints: * [...] G 2211 Complex e/[place], [address] CAPILLARY BLOOD DRAW, 59372 CBC WITH AUTO DIFF * Follow Up: p rn * Images: Billing Information: * Visit Code: 34106 Office Visit, Est Pt., Level 3. * Procedure Codes: G2211 Complex e/[place]. [address] CAPILLARY BLOOD DRAW. 81842 CBC WITH AUTO DIFF. * Electronic signature of SVETA Kidd on 03/16/2025 at 02:55 PM EDT Sign off status: Pending * Provider: VSETA Healy Date: 0 10/08/2024 Generated for Printi ng/Faxing/eTransmitting on: 1 02:55 PM EDT History and [...]
--- OUTSIDE RECORDS SUMMARY | 2025-03-16 14:55 | XMS_ITS | Patient Health Record ---
Author Organization [facility] Address [address] [facility] [address] [facility] [address] [place] [phone] Care Team Providers Care Medical Device Sales Consultant Name Role Phone Gaby Harris Primary Care Provider BennyDianna mistry Unavailable [phone] Allergies Allergen (clinical drug ingredient) Drug/Non Drug Allergy documented on EMR Reaction Allergy Type Onset Date Status polymyxin B Polymyxin B rash Drug Allergy Act nigel Results Component Value Reference Range Notes Influenza Screen (in house) Reviewed date:08/14/2024 08:36:57 AM Interpretation: Performing Lab: Notes/Report: results Pos A CBC Fingerstick (in house) Reviewed date:10/09/2024 08:23:56 [...] - 38 plat 121 100 - 400 X ray : Spine, lumbar Reviewed date:04/17/2024 [...] Interpretation:no fx Performing Lab: Notes/Report: no fx Reason For Referral No Information Medications Medication SIG (Take, Route, Frequency, Duration) Notes Start Date End Date Status Metoprolol Succinate 25 MG 1 capsule Ora lly Once a day; Duration: 10 days Active Flonase Allergy Relief 50 MCG/ACT 1 spray in each nostril Nasally Once a day 10/08/2024 Active Clopidogrel Bisulfate 75 MG 1 tab(s) ora lly once a day Active rOPINIRole HCl 1 MG 1 tab(s) orally At B ed Time; Duration: 30 day(s) 05/24/2022 Active Promethazine-DM 6.25-15 MG/5ML 5 mL orally every 6 hours prn; Duration: 5 days 10/08/2024 Active Pantoprazole Sodium 40 MG 1 tab(s) orall y once a day Active Carvedilol 6.25 MG 1 tab(s) orally 2 ti mes a day Active Vitamin B Complex - as directed Orally Active Flonase Allergy Relief 50 MCG/ACT 1 spray in each nostril Nasally Once a day; Duration: 30 day(s) 01/21/2023 Active Probiotic - as directed Orally Active Terazosin HCl 10 MG TAKE 1 CAPSULE AT [facility] (NEED MD APPOINTMENT); Duration: 30 Active Lisinopril 20 MG 1 tab(s) orally once a day; Duration: 10 days Active tiZANidine HCl 4 MG 1 tab(s) orally At B ed Time; Duration: 30 day(s) 08/07/2022 Active Fexofenadine HCl 180 MG 1 tablet swallow whole with water; do not take with fruit juices. Orally Once a day; Duration: 30 day(s) 09/13/2023 Active Magnesium 200 MG 1 tab Orally Once a day Active Atorvastatin Calcium 80 MG 1 tab(s) oral ly once a day Active Immunizations Vaccine Route Administration Date Status Comme nts [...] xFluzone High Dose-private (65yr&older) Unknown 03/16/2016 Administered Problems Problem Type SNOMED Code ICD Code Onset Dates Problem Status W/U Status Risk Notes Problem Coronary arteriosclerosis (04995184) ASCVD (arteriosclerotic cardiovascular disease) (I25.10) Active confirmed Problem Hypertension (87542641) Hypertension (I10) Active confirmed Problem Restless legs syndrome (42406268) Restless leg syndrome (G25.81) Active confirmed Problem Benign prostatic hyperplasia (653114278) BPH (benign prostatic hyperplasia) (N40.0) Active confirmed Problem Cramp in lower leg associated with rest (309840989) Nocturnal leg cramps (G47.62) Active confirmed Problem Environmental allergy (947617634) Environmental allergies (Z91.09) Active confirmed Problem Sciatica (09691403) Lumbago with sciatica, right side (M54.41) Active confirmed Problem Hesitancy of micturition (9247857) Hesitancy of micturition (R39.11) Active confirmed Problem Gastroesophageal reflux disease (689626736) GERD without esophagitis (K21.9) Active confirmed Problem Chronic pain (45217593) Other chronic pain (G89.29) Active confirmed Problem Constipation (77713507) Constipation, unspecified constipation type (K59.00) Active confirmed Problem Seasonal allergic rhinitis (566085800) Seasonal rhinitis (J30.2) Active confirmed Problem Body mass index 30.00 to 34.99 (484326257089792) BMI 31.0-31.9,adult (Z68.31) Active confirmed Problem Dyslipidemia (878139325) Dyslipidemia (E78.5) Active confirmed Problem Lower urinary tract symptoms due to benign prostatic hypertrophy (15026216416112) Benign prostatic hyperplasia with lower urinary tract symptoms (N40.1) Active confirmed Problem Seasonal allergic rhinitis (376851374) Seasonal allergic rhinitis, unspecified trigger (J30.2) Active confirmed Problem Allergic rhinitis (93767455) Non-seasonal allergic rhinitis, unspecified trigger (J30.89) Active confirmed Problem Lumbar radiculopathy (082366187) Lumbar back pain with radiculopathy affecting left lower extremity (M54.16) Active confirmed Problem Occlusion and stenosis of multiple and bilateral cerebral arteries (118364639) Asymptomatic bilateral carotid artery stenosis (I65.23) Active confirmed Vital Signs Heart Rate 75 /min 10/08/2024 Blood pressure diastolic 76 mm Hg 10/08/2024 Height 66 in 10/08/2024 Blood pressure systolic 130 mm Hg 10/08/2024 Weight 209.4 lbs 10/08/2024 BMI 33.79 kg/m2 10/08/2024 Encounters Encounter Location Date Provider Diagnosis [facility] [address] [place] [id number] 04/10/2024 Dianna London Unspecified fall, initial encounter W19.XXXA ; Lumbar back pain with radiculopathy affecting left lower extremity M54.16 ; Hip pain, left M25.552 ; Bony pelvic pain M89.8X8 and Non-seasonal allergic rhinitis, unspecified trigger J30.89 [facility] [address] [place] [phone] 08/13/2024 Dianna London Influenza A J10.1 [facility] [address] [place] [phone] 10/08/2024 Dianna London Acute URI J06.9 [facility] [address] [place], [place] [id number] 04/17/2024 Dianna [place] [facility] [address] [place], [place] [id number] 02/01/2025 R Jose Harris Hypertension I10 Assessments Encounter Date Diagnosis (ICD Code) Assessment Notes Treatment Notes Treatment Clinical Notes Section Notes 04/10/2024 Unspecified fall, initial encounter (ICD-10 - W19.XXXA) 04/10/2024 Lumbar back pain with radiculopathy affecting left lower extremity (ICD-10 - M54.16) 08/13/2024 Influenza A (ICD-10 - J10.1) Rest, fluids, tylenol or motrin for fevers. Home until fever free for 24-48 hours without the use of medication. 10/08/2024 Acute URI (ICD-10 - J06.9) 02/01/2025 Hypertension (ICD-10 - I10) 04/10/2024 Hip pain, left (ICD-10 - M25.552) 04/10/2024 Bony pelvic pain (ICD-10 - M89.8X8) 04/10/2024 Non-seasonal allergic rhinitis, unspecified trigger (ICD-10 - J30.89) Plan Of Treatment Pending Test Test Name Order Date Cologuard 04/01/2023 Insurance Providers Payer Name Payer Address Payer Phone Subscriber Number Group Number Insured Name Patient Relationship to Insured Coverage Start Date Coverage End Date [employer] (MEDICAR E) [address] [address] [place] [address] [id number] GRACIE BARRETO Self - patient is the insured Medications Administered Medication Instructions Date of Administration Dosage Notes Depo- Medrol 40 mg/ml 08/07/2022 1.5 mL Medical (General) History Medical History History ICD Code ASCVD Hypertension Hyperlipidemia GERD Carotid Stenosis Benign Prostatic Hyperplasia Surgical History Surgery Date(Month/Year) Lumbar Disc Coronary Artery Stents x4
--- NOTE | 2025-03-16 15:15 | CA_ITS ---
FINAL REPORT TECHNIQUE: Sen scale, color and spectral doppler images of the bilateral carotid arteries were obtained. CLINICAL HISTORY: RHETT, HTN, HLD COMPARISON: None FINDINGS: Peak systolic velocity in the right internal carotid artery is 154 cm/sec. The internal carotid to common carotid artery ratio is 2.42. There is no significant carotid artery stenosis and no significant plaque formation. The right vertebral artery is normal in direction. Peak systolic velocity in the left internal carotid artery is 192 cm/sec. The internal carotid to common carotid artery ratio is 2.5. There is no significant carotid artery stenosis and no significant plaque formation. The left vertebral artery is normal in direction. IMPRESSION: Mild to moderate plaque is present in the right carotid artery, with less than 50% stenosis. Mild to moderate plaque is present in the left carotid artery, with 50 to 69% stenosis. Antegrade flow bilateral vertebral arteries. Reviewed, Interpreted and Dictated by Lelia Ramirez MD Transcribed by Kirsten Guy Authenticated and [facility]
== END 2025-03-16 23:59 | disposition home or self-care (01) ==
LOC: RT 14:53
PROVIDERS: PCP Family Medicine; Visit Provider Physician Assistant
DX: I65.23 Occlusion and stenosis of bilateral carotid arteries (principal); I25.10 Atherosclerotic heart disease of native coronary artery without angina pectoris; R42 Dizziness and giddiness
CPT/HCPCS: 93880

== ENCOUNTER 2025-03-24 23:22 | Emergency (ER) | payer MEDICARE, SELFPAY ==
--- OUTSIDE RECORDS SUMMARY | 2024-03-06 07:30 | XMS_ITS ---
Author Organization [facility] Address [address] [facility] [address] [place] [id number] Care Team Providers Care Talent Director Name Role Phone Gaby Harris Primary Care Provider Dianna London [phone] Allergies Allergen (clinical drug ingredient) Drug/Non Drug Allergy documented on EMR Reaction Allergy Type Onset Date Status polymyxin B Polymyxin B rash Drug Allergy Act nigel REASON FOR VISIT congestion Encounters Encounter Location Date Provider Diagnosis Crista [facility] [address] [place] [phone] 03/06/2024 Dianna London Plan Of Treatment No Information Progress Notes * GRACIE BARRETODOB:1945 (80 yo M)Acc No.[id number]:03/06/2024 Progress Notes Patient: GRACIE SHIELDS Provider: SVETA Healy :1945 A ge:79 Y S ex:Male Date:03/06/2024 Address:[address] [id number] Pcp:Gaby Harris Subjective: * Chief Complaints: * 1 . Congestion. * ROS: D ERMATOLOGY: no R austin. n o H dana. G ASTROENTEROLOGY: no N ausea. n o V omiting. U ROLOGY: no D ifficulty urinating. n o B lood in urine. * Medical History: A SCVD, Hypertension, Hyperlipidemia, GERD, Carotid Stenosis, Benign Prostatic Hyperplasia. * Surgical History: L umbar Disc , Coronary Artery Stents x4 . * Hospitalization/Major Diagno stic Procedure: D enies Past Hospitalization. * Family History: F ather: 54 yrs, stroke, diagnosed with Hypertension, Diabetes. M other: 77 yrs, kidney failure, diagnosed with Diabetes. 3 daughter(s) . . * Social History: C URRENT TOBACCO USE: No . C affeine: yes, frequency: daily. Home smoke detector use: yes. Alcohol: no. * Allergies: P olymyxin B: rash. Objective: * Vitals: Assessment: Plan: * Treatment: * Images: Billing Information: * Visit Code: * Procedure Codes: * Electronic signature of SVTEA Kidd on 03/25/2025 at 12:09 AM EDT Sign off status: Pending * Provider: SVETA Healy Date: 0 03/06/2024 Generated for Trudy green/Carlitos/Memeitting on: 1 12:09 AM EDT
--- OUTSIDE RECORDS SUMMARY | 2024-04-10 10:00 | XMS_ITS ---
[facility] Address [address] [facility] [address] [place] [phone] Care Team Providers Care Master Cosmetologist Name Role Phone Gaby Harris Primary Care Provider Dianna London [phone] Allergies Allergen (clinical drug ingredient) Drug/Non Drug [...] W/U Status Risk Notes Problem Lumbar radiculopathy (683577895) Lumbar back pain with radiculopathy affecting left lower extremity (M54.16) Active confirmed Problem Allergic rhinitis (94809106) Non-seasonal allergic rhinitis, unspecified trigger (J30.89) Active confirmed Vital Signs Blood pressure systolic 134 mm Hg 04/10/20 24 Blood pressure diastolic 60 mm Hg 024 Heart Rate 80 /min 04/10/2024 Height 66 in 04/10/2024 Weight 214.2 lbs 04/10/2024 BMI 34.57 kg/m2 04/10/2024 Encounters Encounter Location Date Provider Diagnosis [facility] [address] [place], [place] [phone] 04/10/2024 Dianna London Unspecified fall, in itial [...] Notes * GRACIE BARRETODOB:1945 (80 yo M)Acc No.[id number]:04/10/2024 Progress Notes Patient: GRACIE SHIELDS Provider: SVETA Healy :1945 A ge:79 Y S ex:Male Date:04/10/2024 Address:[address] [place], [place] [phone] Pcp:Gaby Harris Subjective: * Chief Complaints: * [...] * Images: Billing Information: * Visit Code: 40552 Office Visit, Est Pt., Level 4. * Procedure Codes: 80707 PULSE OX. * Electronic signature of SVETA Kidd on 03/25/2025 at 12:08 AM EDT Sign off status: Pending * Provider: SVETA Healy Date: 06/10/2023 Generated for Trudy green/Carlitos/eTransmitting on: 12:08 AM EDT History and Physical Notes * HPI [...]
--- OUTSIDE RECORDS SUMMARY | 2024-08-12 05:15 | XMS_ITS ---
Author Organization [facility] Address [address] [facility] [address] [place] [id number] Care Team Providers Care Front Desk Administrator Name Role Phone Gaby Harris Primary Care Provider Dianna London [phone] Allergies Allergen (clinical drug ingredient) Drug/Non Drug Allergy documented on EMR Reaction Allergy Type Onset Date Status polymyxin B Polymyxin B rash Drug Allergy Act nigel REASON FOR VISIT poss sinus infection Encounters Encounter Location Date Provider Diagnosis [place] [address] [facility] [address] [place] [phone] 08/12/2024 Dianna London Plan Of Treatment No Information Progress Notes * GRACIE BARRETODOB:1945 (80 yo M)Acc No.[id number]:08/12/2024 Progress Notes Patient: GRACIE SHIELDS Provider: SVETA Healy :1945 A ge:79 Y S ex:Male Date:08/12/2024 Address:[address] [id number] Pcp:Gaby Harris Subjective: * Chief Complaints: * 1 . Poss sinus infection. * ROS: D ERMATOLOGY: no R austin. n o H dana. G ASTROENTEROLOGY: no N ausea. n o V omiting. n o D iarrhea.? U ROLOGY: no D ifficulty urinating. n [...] signature of SVETA Kidd on 03/25/2025 at 12:07 AM EDT Sign off status: Pending * Provider: SVETA Healy Date: 0 08/12/2024 Generated for Trudy green/Carlitos/Memeitting on: 1 12:07 AM EDT
--- OUTSIDE RECORDS SUMMARY | 2024-08-13 11:15 | XMS_ITS ---
Author Organization [facility] Address [address] [place] [phone] Care Team Providers Care Deputy Harbormaster Name Role Phone Gaby Harris Primary Care Provider Surya Dianna Unavailable [phone] Allergies Allergen (clinical drug ingredient) Drug/Non Drug [...] 08/13/2024 Encounters Encounter Location Date Provider Diagnosis [facility] [address], [place] [phone] 08/13/2024 Dianna London Influenza A J10. 1 [...] Notes * TY BARRETOLIYADOB:1945 (80 yo M)Acc No.[id number]:08/13/2024 Progress Notes Patient: GRACIE SHIELDS Provider: SVETA Healy :1945 A ge:79 Y S ex:Male Date:08/13/2024 [facility] [place] [id number] Pcp:Gaby Harris Subjective: * Chief Complaints: * [...] G 2211 Complex e/[place], [address] [place], [address] Flu Test- Nasal Swab, Modifiers: QW , 3075F SYST BP GE 130 - 139MM HG, 3078F DIAST BP < 80 MM HG * Follow Up: p rn * Images: Billing Information: * Visit Code: 56895 Office Visit, Est Pt., Level 3. * Procedure Codes: G2211 Complex e/[place]. [address] [place] [address] Flu Test- Nasal Swab. Modifiers: QW 3075F SYST BP GE 130 - 139MM HG. 3078F DIAST BP < 80 MM HG. * Electronic signature of SVETA Kidd on 03/25/2025 at 12:08 AM EDT Sign off status: Pending * Provider: SVETA Healy Date: 0 08/13/2024 Generated for Clausi norma/Carlitos/eTransmitting on: 1 12:08 AM EDT History and Physical Notes [...]
--- OUTSIDE RECORDS SUMMARY | 2024-10-08 10:30 | XMS_ITS ---
Author Organization [facility] Address [address] [facility] [address] [place] [id number] Care Team Providers Care Quality Manager Name Role Phone Gaby Harris Primary Care Provider [phone] Surya Dianna Unavailable [phone] Allergies Allergen (clinical drug ingredient) Drug/Non Drug Allergy documented on EMR Reaction Allergy Type Onset Date Status polymyxin B Polymyxin B rash Drug Allergy Act nigel Results Component Value Reference Range Notes CBC Fingerstick (in house) Reviewed date:10/09/2024 08:23:56 AM Interpretation: Performing Lab: Notes/Report: wbc 5.3 3.5 - 10 lym 18.4 15 - 50 mid 6.1 2 - 15 gran 75.5 35 - 80 rbc 3.67 3.5 - 5.5 hgb 11.0 11.5 - 16.5 hct 32.8 35 - 55 mcv 89.4 75 - 100 mch 30.0 25 - 35 mchc 33.6 31 - 38 plat 121 100 - 400 REASON FOR VISIT Sinus Drainage Medications Medication SIG (Take, Route, Frequency, Duration) Notes Start Date End Date Status Lisinopril 20 MG 1 tab(s) orally once a day Active rOPINIRole HCl 1 MG 1 tab(s) orally At B ed Time; Duration: 30 day(s) 05/24/2022 Active Pantoprazole Sodium 40 MG 1 tab(s) orall y once a day Active Carvedilol 6.25 MG 1 tab(s) orally 2 ti mes a day Active tiZANidine HCl 4 MG 1 tab(s) orally At B ed Time; Duration: 30 day(s) 08/07/2022 Active Promethazine-DM 6.25-15 MG/5ML 5 mL orally every 6 hours prn; Duration: 5 days 10/08/2024 Active Magnesium 200 MG 1 tab Orally Once a day Active Atorvastatin Calcium 80 MG 1 tab(s) oral ly once a day Active Flonase Allergy Relief 50 MCG/ACT 1 spray in each nostril Nasally Once a day 10/08/2024 Active Clopidogrel Bisulfate 75 MG 1 tab(s) ora lly once a day Active Vitamin B Complex - as directed Orally Active Flonase Allergy Relief 50 MCG/ACT 1 spray in each nostril Nasally Once a day; Duration: 30 day(s) 01/21/2023 Active Probiotic - as directed Orally Active Terazosin HCl 10 MG TAKE 1 CAPSULE AT [facility] (NEED MD APPOINTMENT); Duration: 30 Active Metoprolol Succinate 25 MG 1 capsule Ora lly Once a day; Duration: 30 day(s) Active Fexofenadine HCl 180 MG 1 tablet swallow whole with water; do not take with fruit juices. Orally Once a day; Duration: 30 day(s) 09/13/2023 Active Vital Signs Blood pressure systolic 130 mm Hg 10/09/19 25 Blood pressure diastolic 76 mm Hg 025 Heart Rate 75 /min 10/08/2024 Height 66 in 10/08/2024 Weight 209.4 lbs 10/08/2024 BMI 33.79 kg/m2 10/08/2024 Encounters Encounter Location Date Provider Diagnosis [facility] [address], [place] [phone] 10/08/2024 Dianna London Acute URI J06.9 Assessments Encounter Date Diagnosis (ICD Code) Assessment Notes Treatment Notes Treatment Clinical Notes Section Notes 10/08/2024 Acute URI (ICD-10 - J06.9) Plan Of Treatment Medication Medication Name Sig Start Date Stop Date Notes Promethazine-DM 6.25-15 MG/5ML 5 mL oral ly every 6 hours prn; Duration: 5 days 10/08/2024 Flonase Allergy Relief 50 MCG/ACT 1 spray in each nostril Nasally Once a day 10/08/2024 Next Appt Details Follow Up: prn, Reason: Progress Notes * MYRANDA BARRETO:1945 (80 yo M)Acc No.[id number]:10/08/2024 Progress Notes Patient: GRACEI SHIELDS Provider: SVETA Healy :1945 A ge:79 Y S ex:Male Date:10/08/2024 Address:[address] [place] [address] Jonathan perea, [facility] Pcp:Gaby Harris Subjective: * Chief Complaints: * 1 . Sinus Drainage. * HPI: E NT/respiratory: 79 year old male presents with c/o cough. c/o nasal congestion. c/o ear pain P t sts his left ears pop and cracks. c/o headache. sore throat P t sts his throat is irritated from coughing.? * ROS: D ERMATOLOGY: no R austin. [...] MG Capsule TAKE 1 CAPSULE AT BEDTIME (NEED MD APPOINTMENT) , Medication List reviewed and reconciled with the patient * Allergies: P olymyxin B: rash. Objective: * Vitals: W t: 209.4, Temp: 97.8, BP: 130/76, HR: 75, O2 Sat: 94% on RA, Nurse: bg, Ht: 66, BMI:33.79. * Examination: E NT/Respiratory: General Appearance: N AD. E ars: a uditory canals normal bilaterally, TM's WNL. N ose : turbinates red, congested. S inuses : tender maxillary sinuses bilaterally. O ral cavity : erythema without exudate on pharynx, PND present. N julio cesar : n o cervical lymphadenopathy. H eart : R RR, normal S1 S2, no murmurs. L ungs: CTAB A&P. Assessment: * Assessment: 1. Jimmy plascencia URI - J06.9 (Primary) Plan: * Treatment: Value Reference Range w bc 5.3 3.5 - 10 * l ym 18.4 15 - 50 * m id 6.1 2 - 15 * g ran 75.5 35 - 80 * r bc 3.67 3.5 - 5.5 * h gb 11.0 11.5 - 16.5 * h ct 32.8 35 - 55 * m cv 89.4 75 - 100 * m ch 30.0 25 - 35 * m chc 33.6 31 - 38 * p lat 121 100 - 400 * Elly Rudd 10/08/2024 03:18 :53 PM > Provider reviewed results while patient in office. * Procedure Codes: G 2211 Complex e/[place], [address] CAPILLARY BLOOD DRAW, 23240 CBC WITH AUTO DIFF * Follow Up: p rn * Images: Billing Information: * Visit Code: 00045 Office Visit, Est Pt., Level 3. * Procedure Codes: G2211 Complex e/[place]. [address] CAPILLARY BLOOD DRAW. 97151 CBC WITH AUTO DIFF. * Electronic signature of SVETA Kidd on 03/25/2025 at 12:08 AM EDT Sign off status: Pending * Provider: SVETA Healy Date: 0 10/08/2024 Generated for Printi ng/Faxing/eTransmitting on: 1 12:08 AM EDT History and Physical Notes * HPI (History of Present Illness) Category Sub-Category Detail Notes Category Not es ENT/respiratory sore throat Pt sts his throa t is irritated from coughing ear pain Pt sts his left ears pop and cracks cough headache nasal congestion Examination Category Sub-Category Detail Notes Category Not es ENT/Respiratory Oral cavity : erythema without exudate on pharynx, PND present Sinuses : tender maxillary sin uses bilaterally Ears: auditory canals norm al bilaterally, TM's WNL Neck : no cervical lymphade nopathy Heart : RRR, normal S1 S2, n o murmurs Lungs: CTAB A&P General Appearance: NAD Nose : turbinates red, chon ested
[2025-03-24 22:52] VITALS: BP 186/100; PULSE 64; RESP 20; TEMP 37.2; O2SAT 95; BMI 32.7
--- NOTE | 2025-03-24 22:57 | CT_ITS ---
PROCEDURE INFORMATION: Exam: CT Head Without Contrast Exam date and time: 03/24/2025 11:04 PM Age: 80 years old Clinical indication: Stroke-like symptoms; Altered mental status/memory loss TECHNIQUE: Imaging protocol: Computed tomography of the head without contrast. Radiation optimization: All CT scans at this facility use at least one of these dose optimization techniques: automated exposure control; mA and/or kV adjustment per patient size (includes targeted exams where dose is matched to clinical indication); or iterative reconstruction. Other technique: STROKE PROTOCOL was implemented. COMPARISON: US CA CAROTID DUPLEX BI 03/16/2025 3:05 PM FINDINGS: Brain: No acute infarct. No acute hemorrhage. Unremarkable white matter for age. No midline shift. Cerebral ventricles: No significant ventriculomegaly. Paranasal sinuses: Visualized paranasal sinuses are clear. Mastoid air cells: Mastoid air cells are well-aerated. Orbital cavities: Visualized portions of the orbits are unremarkable. Bones: No displaced calvarial fracture identified. Soft tissues: Soft tissues are unremarkable as visualized. IMPRESSION: No acute intracranial abnormality. ASSESSMENT: ASPECTS ([place] Stroke Program Early CT Score) is 10.
--- NOTE | 2025-03-24 22:58 | CT_ITS ---
PROCEDURE INFORMATION: Exam: CTA Head With Contrast, Arteriography Exam date and time: 03/24/2025 11:17 PM Age: 80 years old Clinical indication: Stroke-like symptoms; Altered mental status/memory loss TECHNIQUE: Imaging protocol: Computed tomographic angiography of the head with contrast. Exam focused on the arteries. 3D rendering (Not supervised by radiologist): MIP and/or 3D reconstructed images were created by the technologist. Radiation optimization: All CT scans at this facility use at least one of these dose optimization techniques: automated exposure control; mA and/or kV adjustment per patient size (includes targeted exams where dose is matched to clinical indication); or iterative reconstruction. Contrast material: ISOVUE; Contrast volume: 80 ml; Contrast route: INTRAVENOUS (IV); COMPARISON: CT HEAD/BRAIN WO CON 03/24/2025 11:04 PM FINDINGS: ANTERIOR CIRCULATION: Right internal carotid artery: Atherosclerotic changes right internal carotid artery with mild stenosis. Right middle cerebral artery: Right middle cerebral artery is patent. No significant stenosis. No aneurysm. Right anterior cerebral artery: Right anterior cerebral artery is patent. No significant stenosis. No aneurysm. Anterior communicating artery: No anterior communicating artery aneurysm seen. Left internal carotid artery: Atherosclerotic changes left internal carotid artery with mild stenosis. Left middle cerebral artery: Left middle cerebral artery is patent. No significant stenosis. No aneurysm. Left anterior cerebral artery: Left anterior cerebral artery is patent. No significant stenosis. No aneurysm. POSTERIOR CIRCULATION: Right vertebral artery: Right vertebral artery is patent. No significant stenosis. No aneurysm. Left vertebral artery: Left vertebral artery is patent. No significant stenosis. No aneurysm. Basilar artery: The basilar artery is patent. No significant stenosis. No aneurysm. Right posterior cerebral artery: Right posterior cerebral artery is patent. No significant stenosis. No aneurysm. Left posterior cerebral artery: Left posterior cerebral artery is patent. No significant stenosis. No aneurysm. Veins: Visualized dural venous sinuses grossly patent on this study optimized for arterial assessment. Brain: There is no definite mass, mass effect, or midline shift present. No definite vascular malformation identified. Cerebral ventricles: No significant ventriculomegaly. Bones/joints: No acute osseous abnormality. Soft tissues: Soft tissues are unremarkable as visualized. IMPRESSION: No acute large vessel occlusion identified. PROCEDURE INFORMATION: Exam: CTA Neck With Contrast Exam date and time: 03/24/2025 11:17 PM Age: 80 years old Clinical indication: Stroke-like symptoms; Altered mental status/memory loss TECHNIQUE: Imaging protocol: Computed tomographic angiography of the neck with contrast. Exam focused on the cervical segments of the vasculature. 3D rendering (Not supervised by radiologist): MIP and/or 3D reconstructed images were created by the technologist. Radiation optimization: All CT scans at this facility use at least one of these dose optimization techniques: automated exposure control; mA and/or kV adjustment per patient size (includes targeted exams where dose is matched to clinical indication); or iterative reconstruction. Contrast material: ISOVUE; Contrast volume: 80 ml; Contrast route: INTRAVENOUS (IV); COMPARISON: CT CERVICAL SPINE WO CON 03/24/2025 11:10 PM FINDINGS: Right common carotid artery: The right common carotid artery is widely patent. No stenosis. Right internal carotid artery: Atherosclerotic changes proximal right internal carotid artery are seen without significant stenosis. Right external carotid artery: Right external carotid artery has no visible occlusion. Left common carotid artery: The left common carotid artery is widely patent. No stenosis. Left internal carotid artery: The proximal left internal carotid artery has 50% stenosis related to atherosclerotic changes. Left external carotid artery: Left external carotid artery has no visible occlusion. Right vertebral artery: Right vertebral artery is patent. No significant stenosis. No evidence of dissection. Left vertebral artery: Left vertebral artery is patent. No significant stenosis. No evidence of dissection. Left subclavian artery: The proximal left subclavian artery has mild stenosis. Larynx: The left vocal fold is medialized suggesting possible paralysis. Lymph nodes: Calcified mediastinal nodes suggest old granulomatous disease. Soft tissues: Soft tissues are unremarkable as visualized. Bones/joints: Degenerative bony changes. Lungs: There are minimal dependent changes in the visualized lung apices. Other findings: Visualized mediastinal vasculature patent. IMPRESSION: There is 50% stenosis of the proximal left ICA. There is no vascular occlusion seen in the neck. REFERENCES: NASCET CRITERIA. The degree of stenosis in the cervical segment of the internal carotid artery is based on NASCET criteria. Normal is no stenosis. Mild is less than 50% stenosis. Moderate is 50-69% stenosis. Severe is 70% to 99% stenosis. Total occlusion is no detectable patent lumen.
--- NOTE | 2025-03-24 22:59 | CT_ITS ---
PROCEDURE INFORMATION: Exam: CTA Abdomen and Pelvis With Contrast Exam date and time: 03/24/2025 11:20 PM Age: 80 years old Clinical indication: Other: Stroke, injury/trauma, fall TECHNIQUE: Imaging protocol: Computed tomographic angiography of the abdomen and pelvis with contrast. Exam focused on the arteries. 3D rendering (Not supervised by radiologist): MIP and/or 3D reconstructed images were created by the technologist. Radiation optimization: All CT scans at this facility use at least one of these dose optimization techniques: automated exposure control; mA and/or kV adjustment per patient size (includes targeted exams where dose is matched to clinical indication); or iterative reconstruction. Contrast material: ISO 370; Contrast volume: 80 ml; Contrast route: INTRAVENOUS (IV); COMPARISON: CR XR HIP LT 2-3V W/PELVIS 04/10/2024 3:13 PM FINDINGS: Lungs: Lung bases and chest findings reported separately. Aorta: Atherosclerotic vascular calcification. No aortic aneurysm or dissection. Celiac and mesenteric arteries: Patent enhancing celiac artery, SMA and SAMIA. 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 Renal arteries: Patent enhancing bilateral renal arteries. Moderate proximal right renal artery stenosis. Right iliac arteries: No occlusion or significant stenosis. Left iliac arteries: No occlusion or significant stenosis. Liver: No acute abnormality. Liver appears intact. Gallbladder and biliary ducts: Unremarkable. No calcified stones. No ductal dilation. Pancreas: No acute abnormality. No mass. No ductal dilation. Spleen: No acute abnormality. Spleen appears intact. Punctate splenic calcified granulomas. Adrenal glands: No significant or acute abnormality. Kidneys and ureters: Kidneys appear intact and enhance normally. No hydronephrosis or hydroureter. Stomach and bowel: No significant or disproportionate large or small bowel distention. Moderate amount of stool within the colon. Colonic diverticulosis without CT evidence of diverticulitis. Appendix: No findings to suggest acute appendicitis. Intraperitoneal space: No significant fluid collection. No free air. Lymph nodes: No enlarged lymph nodes. Urinary bladder: Intact urinary bladder. Reproductive: Small prostate calcifications. Bones/joints: No acute osseous abnormality. Multilevel spondylosis and lower lumbar degenerative changes. Proximal right femur coarsened trabecular pattern suggestive of Paget disease. Soft tissues: Small fat containing umbilical hernia. IMPRESSION: 1. No evidence of traumatic visceral injury. 2. No aortic aneurysm or dissection. 3. 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 4. Moderate proximal right renal artery stenosis. 5. Colonic diverticulosis without CT evidence of diverticulitis.
--- NOTE | 2025-03-24 22:59 | CT_ITS ---
PROCEDURE INFORMATION: Exam: CTA Chest With Contrast Exam date and time: 03/24/2025 11:20 PM Age: 80 years old Clinical indication: Injury or trauma; Additional info: Stroke, fall TECHNIQUE: Imaging protocol: Computed tomographic angiography of the chest with contrast. Exam focused on the arteries. 3D rendering (Not supervised by radiologist): MIP and/or 3D reconstructed images were created by the technologist. Radiation optimization: All CT scans at this facility use at least one of these dose optimization techniques: automated exposure control; mA and/or kV adjustment per patient size (includes targeted exams where dose is matched to clinical indication); or iterative reconstruction. Contrast material: ISOVUE; Contrast volume: 80 ml; Contrast route: INTRAVENOUS (IV); COMPARISON: CT ANGIO NECK 03/24/2025 11:17 PM FINDINGS: Pulmonary arteries: No definite vascular intraluminal filling defects to suggest acute pulmonary embolism. Aorta: Mildly ectatic, tortuous and calcified thoracic aorta. No aortic dissection. Lungs: Mild posterior dependent and bibasilar atelectasis. Pleural spaces: No pleural effusion. No pneumothorax. Heart: Heart size upper limits of normal. Coronary arteries: Coronary artery calcifications and stents. Lymph nodes: No enlarged lymph nodes. Bones/joints: No acute osseous abnormality. Mild thoracic kyphoscoliosis, spondylosis and degenerative bony changes. Soft tissues: No significant soft tissue abnormalities. Other findings: Abdomen and pelvis findings reported separately. IMPRESSION: 1. No evidence of acute traumatic injury. 2. No evidence of pulmonary embolism or aortic dissection. 3. Mild posterior dependent and bibasilar atelectasis. 4. Atherosclerotic vascular disease including coronary artery disease.
--- NOTE | 2025-03-24 23:04 | CT_ITS ---
PROCEDURE INFORMATION: Exam: CT Lumbar Spine Without Contrast Exam date and time: 03/24/2025 11:15 PM Age: 80 years old Clinical indication: Injury or trauma; Additional info: Fall TECHNIQUE: Imaging protocol: Computed tomography of the lumbar spine without contrast. Radiation optimization: All CT scans at this facility use at least one of these dose optimization techniques: automated exposure control; mA and/or kV adjustment per patient size (includes targeted exams where dose is matched to clinical indication); or iterative reconstruction. COMPARISON: CR XR LUMBAR SPINE MIN 4V 04/10/2024 3:13 PM FINDINGS: Bones/joints: No evidence of acute fracture or subluxation. Normal vertebral body height. Previous L4-L5 laminectomies and posterior decompression. Multilevel spondylosis with degenerative endplate spurring. Lower lumbar spine facet hypertrophy. Multilevel findings: Multilevel disc space narrowing, diffuse disc bulging and mild vacuum disc phenomena. Moderate to severe multilevel spinal stenosis and bilateral foraminal stenosis. Soft tissues: No significant soft tissue abnormalities. Other findings: Abdomen and pelvis findings reported separately. IMPRESSION: 1. No evidence of acute fracture or subluxation. 2. Multilevel spondylosis and degenerative changes as described with previous L4-L5 laminectomies and posterior decompression.
--- NOTE | 2025-03-24 23:04 | CT_ITS ---
PROCEDURE INFORMATION: Exam: CT Cervical Spine Without Contrast Exam date and time: 03/24/2025 11:10 PM Age: 80 years old Clinical indication: Injury or trauma; Additional info: Fall TECHNIQUE: Imaging protocol: Computed tomography of the cervical spine without contrast. Radiation optimization: All CT scans at this facility use at least one of these dose optimization techniques: automated exposure control; mA and/or kV adjustment per patient size (includes targeted exams where dose is matched to clinical indication); or iterative reconstruction. COMPARISON: US CA CAROTID DUPLEX BI 03/16/2025 3:05 PM FINDINGS: Bones: Craniocervical alignment is normal. The occipital condyles are intact. The odontoid is intact. Severe osteoarthritic sclerosis and spurring at the atlantodens interval. No jumped or perched facets. Severe osteoarthritic facet hypertrophy/sclerosis on the left at C2-C3. No fractures. Cervical vertebral alignment is normal. Moderate disc osteoarthritic changes C5-C6 and C6-C7. Mild canal stenosis C5-C6. There is left foraminal stenosis which is mild at C2-C3, moderate C5-C6, mild-moderate C6-C7. There is right foraminal stenosis which is moderate-severe C5-C6 and mild-moderate C6-C7. Lungs: Visualized pulmonary apices are clear. Thyroid: The visualized thyroid gland is unremarkable. Vasculature: Moderate atherosclerotic calcific plaque in the carotid bulbs. Soft tissues: No acute soft tissue abnormalities. IMPRESSION: 1. No evidence of acute fracture or traumatic subluxation. 2. Osteoarthritic changes with canal and foraminal stenoses detailed above.
--- NOTE | 2025-03-24 23:04 | CT_ITS ---
PROCEDURE INFORMATION: Exam: CT Thoracic Spine Without Contrast Exam date and time: 03/24/2025 11:12 PM Age: 80 years old Clinical indication: Injury or trauma; Additional info: Fall TECHNIQUE: Imaging protocol: Computed tomography of the thoracic spine without contrast. Radiation optimization: All CT scans at this facility use at least one of these dose optimization techniques: automated exposure control; mA and/or kV adjustment per patient size (includes targeted exams where dose is matched to clinical indication); or iterative reconstruction. COMPARISON: CT CERVICAL SPINE WO CON 03/24/2025 11:10 PM FINDINGS: Bones/joints: No evidence of acute fracture or subluxation. Normal vertebral body height. Mild thoracic kyphoscoliosis, multilevel spondylosis and degenerative bony changes. Discs/Spinal canal/Neural foramina: No acute findings. No significant spinal stenosis. Soft tissues: No significant soft tissue abnormalities. IMPRESSION: 1. No evidence of acute fracture or subluxation. 2. Mild thoracic kyphoscoliosis, multilevel spondylosis and degenerative bony changes.
--- NOTE | 2025-03-24 23:06 | ECG_ITS ---
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 Exam: Resting ECG HR:65 bpm ECG Measurements Heart Rate 65 AXES MT 182 P 44 QRSd 113 QRS 30 QT 427 T 27 QTc 439 Conclusion SINUS RHYTHM MODERATE INTRAVENTRICULAR CONDUCTION DELAY [110+ ms QRS DURATION] No STEMI Electronically signed by : GRZEGORZ CLARK, 03/25/2025 06:32:49
[2025-03-24 23:10] LABS: Hematocrit 34.4 % (42.0-52.0); Hemoglobin 11.8 g/dL (14.1-18.0); Immature Granulocytes % 0.6 %; Mean Corpuscular HGB Conc 34.3 g/dL (31.8-35.4); Mean Corpuscular Hemoglobin 30.2 pg (27.0-31.2); Mean Corpuscular Volume 88.0 fl (80-94); Nucleated Red Blood Cells % 0 %; Platelet Count 115 K/mm3 (142-424); Red Blood Count 3.91 M/mm3 (4.60-6.20); Red Cell Distribution Width-SD 45.1 fL; White Blood Count 8.1 K/mm3 (4.8-10.8)
[2025-03-24 23:18] LABS: Alanine Aminotransferase 27 U/L (12-78); Albumin Level 4.4 g/dl (3.5-5.0); Albumin/Globulin Ratio 1.6 (1.1-1.8); Alkaline Phosphatase 65 U/L (38-126); Anion Gap 15.7 mEq/L (5-15); Aspartate Amino Transferase 31 U/L (17-59); Bilirubin,Total 0.5 mg/dl (0.2-1.3); Blood Urea Nitrogen 24 mg/dl (9-20); Calcium 9.1 mg/dl (8.4-10.2); Carbon Dioxide 24 mmol/L (22.0-30.0); Chloride 105 mmol/L (98-107); Cholesterol 194 mg/dl (140-200); Creatinine,Serum 1.40 mg/dl (0.66-1.25); Estimated Glomerular Filt Rate 49 ml/min (>60); GFR (African American) 59 ML/MIN (>60); Globulin 2.7 g/dL (1.3-3.2); Glucose 171 mg/dl (74-100); HDL Cholesterol 25 mg/dl (40-60); Potassium 3.7 mmoL/L (3.5-5.1); Sodium 141 mmol/L (136-145); Total Protein,Serum 7.1 g/dl (6.3-8.2); Triglycerides 219 mg/dl (30-150)
[2025-03-24 23:26] VITALS: BP 206/86; PULSE 69; RESP 21; O2SAT 93
[2025-03-24 23:30] VITALS: BP 185/86; PULSE 64; RESP 14; O2SAT 92
[2025-03-24] MEDS: SODIUM CHLORIDE 0.9% 10ML SYR (RAD ONLY) 10 ML IV (23:30)
[2025-03-24] MEDS: IOPAMIDOL-370 (76%);100ML BOTTLE 160 ML IV (23:30)
[2025-03-24] MEDS: 0.9 % SODIUM CHLORIDE 50 ML VIAL 100 ML IV (23:30)
[2025-03-24 23:31] LABS: Troponin I < 0.01 ng/ml (0.00-0.034)
[2025-03-24 23:33] LABS: Activated Partial Thrombo Time 21.4 seconds (22.8-30.6); INR 0.92 (0.9-1.1); Prothrombin Time 10.3 seconds (10.1-12.5)
[2025-03-24 23:50] VITALS: BP 140/89; PULSE 75; RESP 12; O2SAT 91
[2025-03-24] MEDS: diazePAM 10MG/2ML SYRINGE 2.5 MG IV (23:53)
[2025-03-25 00:01] VITALS: BP 185/82; PULSE 72; RESP 16; O2SAT 94
--- OUTSIDE RECORDS SUMMARY | 2025-03-25 00:08 | XMS_ITS | Patient Health Record ---
[facility] [address] [place] [id number] Care Team Providers Care Research Pharmacist Name Role Phone Gaby Harris Primary Care Provider Surya Dianna Unavailable [phone] Allergies Allergen (clinical drug ingredient) Drug/Non Drug [...] Interpretation:no fx Performing Lab: Notes/Report: no fx Influenza Screen (in house) Reviewed date:08/14/2024 08:36:57 [...] - 38 plat 121 100 - 400 Reason For Referral No Information Medications Medication [...] 10 MG TAKE 1 CAPSULE AT [facility] (NEED MD APPOINTMENT); Duration: 30 Active Lisinopril [...] Vaccine Route Administration Date Status Comme nts xFluzone High Dose-private (65yr&older) Unknown 03/16/2016 Administered xFluzone (6mos and older)-trivalent Unknown 05/22/2018 Administered Shingrix Unknown 11/28/2022 Administered Fluzone High Dose (65yr and older) Unknown 03/31/2020 Administered Fluzone High Dose (65yr and older) Unknown 04/19/2022 Administered Fluzone High Dose (65yr and older) Unknown 02/27/2023 Administered DT, 7 YEARS OR OLDER Unknown 08/12/1996 Administered COVID 19 Pfizer Unknown 08/18/2020 Administered COVID 19 Pfizer IM Intramuscular 09/18/2020 Administered COVID 19 Pfizer Unknown 04/26/2021 Administered Problems Problem Type SNOMED Code ICD Code Onset Dates Problem Status W/U Status Risk Notes Problem Coronary arteriosclerosis (94473817) ASCVD (arteriosclerotic cardiovascular disease) (I25.10) Active confirmed Problem Hypertension (42088811) Hypertension (I10) Active confirmed Problem Restless legs syndrome (14872852) Restless leg syndrome (G25.81) Active confirmed Problem Benign prostatic hyperplasia (640692765) BPH (benign prostatic hyperplasia) (N40.0) Active confirmed Problem Cramp in lower leg associated with rest (841878143) Nocturnal leg cramps (G47.62) Active confirmed Problem Environmental allergy (854830466) Environmental allergies (Z91.09) Active confirmed Problem Sciatica (93005832) Lumbago with sciatica, right side (M54.41) Active confirmed Problem Hesitancy of micturition (8610164) Hesitancy of micturition (R39.11) Active confirmed Problem Gastroesophageal reflux disease (428717085) GERD without esophagitis (K21.9) Active confirmed Problem Chronic pain (75878188) Other chronic pain (G89.29) Active confirmed Problem Constipation (61199957) Constipation, unspecified constipation type (K59.00) Active confirmed Problem Seasonal allergic rhinitis (838066880) Seasonal rhinitis (J30.2) Active confirmed Problem Body mass index 30.00 to 34.99 (787428351627449) BMI 31.0-31.9,adult (Z68.31) Active confirmed Problem Dyslipidemia (208176396) Dyslipidemia (E78.5) Active confirmed Problem Lower urinary tract symptoms due to benign prostatic hypertrophy (48831704676587) Benign prostatic hyperplasia with lower urinary tract symptoms (N40.1) Active confirmed Problem Seasonal allergic rhinitis (690569448) Seasonal allergic rhinitis, unspecified trigger (J30.2) Active confirmed Problem Allergic rhinitis (97240302) Non-seasonal allergic rhinitis, unspecified trigger (J30.89) Active confirmed Problem Lumbar radiculopathy (374654478) Lumbar back pain with radiculopathy affecting left lower extremity (M54.16) Active confirmed Problem Occlusion and stenosis of multiple and bilateral cerebral arteries (868373026) Asymptomatic bilateral carotid artery stenosis (I65.23) Active confirmed Vital Signs Heart Rate 75 /min 10/08/2024 Blood pressure diastolic 76 mm Hg 10/08/2024 Height 66 in 10/08/2024 Blood pressure systolic 130 mm Hg 10/08/2024 Weight 209.4 lbs 10/08/2024 BMI 33.79 kg/m2 10/08/2024 Encounters Encounter Location Date Provider Diagnosis [facility] [address] [place] [id number] 04/10/2024 Dianna [place] Unspecified fall, initial encounter W19.XXXA ; Lumbar back pain with radiculopathy affecting left lower extremity M54.16 ; Hip pain, left M25.552 ; Bony pelvic pain M89.8X8 and Non-seasonal allergic rhinitis, unspecified trigger J30.89 [facility] [address] [place] [id number] 08/13/2024 Dianna [place] Influenza A J10.1 [facility] [address] [place] [id number] 10/08/2024 iDanna [place] Acute URI J06.9 [facility] [address] [place], [place] [id number] 04/17/2024 Dianna [place]ede [facility] [address] [place], [place] [id number] 02/01/2025 R Jose Harris Hypertension I10 Assessments [...] Date [employer] (MEDICAR E) [address] [address] [place] [phone] [id number] GRACIE BARRETO Self - patient is the insured Medications Administered Medication Instructions Date of Administration Dosage Notes Depo- Medrol 40 mg/ml 08/07/2022 1.5 mL Medical (General) History Medical History History ICD Code ASCVD Hypertension Hyperlipidemia GERD Carotid Stenosis Benign Prostatic Hyperplasia Surgical History Surgery Date(Month/Year) Lumbar Disc Coronary Artery Stents x4
[2025-03-25 00:32] VITALS: BP 202/98; PULSE 81; RESP 23; O2SAT 97
--- NOTE | 2025-03-25 00:44 | HMH.EDGENADL ---
Discharge Plan Disposition Patient Disposition: Xfer Other Condition: Good Prescriptions Prescriptions: No Action tadalafil [Cialis] 5 mg tablet 5 mg PO DAILY Qty: 30 2RF metoprolol succinate 100 mg tablet extended release 24 hr See Rx Instructions .ROUTE .COMPLEX Qty: 30 3RF Dose Instruction: TAKE 1 TABLET EVERY DAY Rx Instructions: TAKE 1 TABLET EVERY DAY aspirin 81 mg tablet,delayed release (DR/EC) See Rx Instructions .ROUTE .COMPLEX Qty: 90 3RF Dose Instruction: TAKE 1 TABLET EVERY DAY Rx Instructions: TAKE 1 TABLET EVERY DAY lisinopril 40 mg tablet 40 mg PO DAILY Qty: 90 3RF pantoprazole 40 mg tablet,delayed release (DR/EC) 40 mg PO DAILY Qty: 90 3RF rosuvastatin [Crestor] 5 mg tablet 5 mg PO DAILY Qty: 30 3RF Referrals Follow up/Referrals: Provider,Referral, MD [Primary Care Provider, Medical] - See instructions Clinical Impressions Clinical Impression: Vertigo, Dizziness Stand Alone Forms Stand Alone Forms: Transfer Record - ED Print Language Print Language: Polish Discharge ED Provider: Chelle Duncan General Adult HPI General Chief complaint: Neuro Symptoms/Deficit Stated complaint: Stroke Time Seen by Provider: 03/24/25 23:26 Mode of Arrival: EMS Source of Information: EMS Description of Symptoms (Recalled from ER Triage Doc. by RN): pt presents as stroke alert from EMS with LKN 2200 today. EMS reports patient was in the shower when call came out that patient had fallen in the bathroom floor. Pt reprots dizziness and nausea where the room is spinning, refusing to open eyes due to getting sick. Pt GCS 12, NAD noted. Brought to department and taken straight to CT scan History of Present Illness HPI narrative: 89-year-old male patient, with past medical history of hypertension, hyperlipidemia, coronary artery disease status post stenting, and bilateral carotid artery stenosis on dual antiplatelet therapy with aspirin and Plavix, who is presenting to the emergency department today as a stroke alert. The patient was reportedly getting out of the bathtub at home and began feeling severely dizzy and vertiginous. The patient subsequently fell in the shower as reported by EMS. They did not observe any external signs of trauma to his body. And route to the hospital the patient was complaining of severe dizziness and inability to open his eyes. EMS did not report any focal deficits otherwise. They state that the patient's last known normal would be at 10 PM this evening. Related Data Previous Rx's ?Medication ?Instructions ?Recorded tadalafil 5 mg tablet (Cialis) 5 mg PO DAILY #30 tabs 11/25/23 aspirin 81 mg tablet,delayed See Rx Instructions .Route 06/29/24 release .COMPLEX #90 tabs lisinopril 40 mg tablet 40 mg PO DAILY #90 tabs 10/28/24 pantoprazole 40 mg tablet,delayed 40 mg PO DAILY #90 tabs 11/16/24 release metoprolol succinate 100 mg See Rx Instructions .Route 03/02/25 tablet,extended release 24 hr .COMPLEX #30 tabs rosuvastatin 5 mg tablet (Crestor) 5 mg PO DAILY #30 tabs 03/24/25 Allergies Allergy/AdvReac Type Severity Reaction Status Date / Time rosuvastatin (From Crestor) AdvReac Mild myalgia Verified 03/02/25 15:21 Codeine Allergy Unknown Unknown Uncoded 03/02/25 15:21 allergy reaction Oxytetracycline Allergy Unknown Unknown Uncoded 03/02/25 15:21 allergy reaction lipitor AdvReac Mild myalgia Uncoded 03/02/25 15:21 [facility] Disclaimer: The information contained in this section may have been updated after the patient was seen, as this information can be updated by other users. Surgical History History of back surgery History of heart artery stent Hx of cardiac cath Family History Other Family history of diabetes mellitus type II Family history of hypothyroidism Family history of stroke Social History Smoking Status: Never smoker alcohol intake: never substance use type: denies use current occupational status: other Travel in the last 8 weeks?: None adopted: No caregiver/support person: No foster care: No lives independently: Yes service: No special alex needs: No agree to transfusion: No do you feel safe at home: Yes victim of physical abuse: No victim of emotional abuse: No victim of sexual abuse: No would you like helpful sources: No Other Medical History Have you received the Pneumonia Vaccine: Yes ROS Obtained: Yes Systems reviewed as appropriate & no additional complaints except as documented Physical Exam General General appearance: other (See MDM) Respiratory Respiratory exam: Present other (See MDM) Cardiovascular Cardiovascular exam: Present other (See MDM) Neurological Exam Neurological exam: Present other (See MDM) Medical Decision Making Medical Records Medical records reviewed: Yes I reviewed the patient's medical records. Screening: Per USPSTF and CDC recommendations, given the prevalence of disease in our region, it is our hospital?s policy to screen for HIV and viral Hepatitis for all patients aged 18 and over and those with ongoing risk factors. Aneesh Inquiry Pt receiving controlled substance: No Aneesh was queried for this patient: No Vital Signs: 03/24/25 22:52 03/24/25 23:26 03/24/25 23:30 Temperature 98.9 F Temperature Source Oral Pulse Rate 69 64 Pulse Rate [Radial] 64 Respiratory Rate 20 21 14 Blood Pressure 206/86 H 185/86 H Blood Pressure [Right Arm] 186/100 H Blood Pressure Mean [Right Arm] 128 Blood Pressure Position [Right Arm] Supine 02 Sat by Pulse Oximetry 95 93 L 92 L Oxygen Delivery Method Room Air Oxygen Flow Rate (LPM) 03/24/25 23:50 03/25/25 00:01 03/25/25 00:32 Temperature Temperature Source Pulse Rate 75 72 81 Pulse Rate [Radial] Respiratory Rate 12 16 23 Blood Pressure 140/89 185/82 H 202/98 H Blood Pressure [Right Arm] Blood Pressure Mean [Right Arm] Blood Pressure Position [Right Arm] 02 Sat by Pulse Oximetry 91 L 94 L 97 Oxygen Delivery Method Nasal Cannula Oxygen Flow Rate (LPM) 2 03/25/25 01:00 Temperature Temperature Source Pulse Rate 75 Pulse Rate [Radial] Respiratory Rate 17 Blood Pressure 205/94 H Blood Pressure [Right Arm] Blood Pressure Mean [Right Arm] Blood Pressure Position [Right Arm] 02 Sat by Pulse Oximetry 96 Oxygen Delivery Method Nasal Cannula Oxygen Flow Rate (LPM) 2 Lab Data Lab Results 03/24/25 22:40: WBC 8.1, RBC 3.91 L, Hgb 11.8 L, Hct 34.4 L, MCV 88.0, MCH 30.2, MCHC 34.3, RDW 14.4, Plt Count 115 L, MPV 11.8 H, Neut % (Auto) 51.2, Lymph % (Auto) 32.3, [place] % (Auto) 11.2 H, Eos % (Auto) 4.3, Baso % (Auto) 0.4, Neut # (Auto) 4.2, Lymph # (Auto) 2.6, [place] # (Auto) 0.9, Eos # (Auto) 0.4, Baso # (Auto) 0.0, PT 10.3, INR 0.92, APTT 21.4 L, Sodium 141, Potassium 3.7, Chloride 105, Carbon Dioxide 24, Anion Gap 15.7 H, BUN 24 H, Creatinine 1.40 H, Estimated GFR 49 L, Est GFR ( Amer) 59, Glucose 171 H, Calcium 9.1, Total Bilirubin 0.5, AST 31, ALT 27, Alkaline Phosphatase 65, Troponin I < 0.01, Total Protein 7.1, Albumin 4.4, Globulin 2.7, Albumin/Globulin Ratio 1.6, Triglycerides 219 H, Cholesterol 194, LDL Cholesterol Direct 107.35, VLDL Cholesterol 44 H, HDL Cholesterol 25 L, Cholesterol/HDL Ratio 7.8 H, Plasma/Serum Alcohol < 10 03/24/25 22:40 03/24/25 22:40 Orders (Tests/Meds): ED MEDICATIONS Generic Name Dose Route Start Last Admin Trade Name Freq PRN Reason Stop Dose Admin Diazepam 2.5 mg 03/24/25 23:27 03/24/25 23:53 Diazepam 10mg/2ml Syringe IV 04/23/25 23:26 2.5 mg NEEDED PRN Administration Seizures Sodium Chloride 10 ml 03/24/25 23:05 Sodium Chloride 0.9% 10ml Flush Syringe IV 04/23/25 23:04 NEEDED PRN Maintain IV Site Discontinued Medications Generic Name Dose Route Start Last Admin Trade Name Freq PRN Reason Stop Dose Admin Iopamidol 160 ml 03/24/25 23:29 03/24/25 23:30 Iopamidol-370 (76%);100ml Bottle IV 03/24/25 23:30 160 ml ONCE ONE Administration Sodium Chloride 100 ml 03/24/25 23:29 03/24/25 23:30 0.9 % Sodium Chloride 50 Ml Vial IV 03/24/25 23:30 100 ml ONCE ONE Administration Sodium Chloride 10 ml 03/24/25 23:29 03/24/25 23:30 Sodium Chloride 0.9% 10ml Syr (Rad Only) IV 10/15/25 23:30 10 ml ONCE ONE Administration ORDERS Category Date Time Status CT angio abdomen pelvis Stat Cat Scan 03/24/25 22:[address] angio chest - dissection Stat Cat Scan 03/24/25 22:[address] angio head Stat Cat Scan 03/24/25 22:[address] angio neck Stat Cat Scan 03/24/25 22:[address] cervical spine wo con Stat Cat Scan 03/24/25 23:[address] head/brain wo con Stat Cat Scan 03/24/25 22:[address] lumbar spine wo con Stat Cat Scan 03/24/25 23:[address] thoracic spine wo con Stat Cat Scan 03/24/25 23:04 Completed Activated Partial Thrombo Time Stat Lab 03/24/25 22:40 Completed Complete Blood Count Auto Diff Stat Lab 03/24/25 22:40 Completed Comprehensive Metabolic Panel Stat Lab 03/24/25 22:40 Completed Drug Screen,Urine Stat Lab 03/24/25 23:05 Ordered Ethyl Alcohol Stat Lab 03/24/25 22:40 Completed Lipid Panel Stat Lab 03/24/25 22:40 Completed Prothrombin Time INR Stat Lab 03/24/25 22:40 Completed Troponin I Q3H Lab 03/25/25 02:15 Ordered Troponin I Q3H Lab 03/25/25 05:15 Ordered Troponin I Stat Lab 03/24/25 22:40 Completed Urinalysis and Microscopic Stat Lab 03/24/25 23:05 Ordered Medical Decision Narrative: In summary this is an 80-year-old male patient who is presenting to the emergency department today for evaluation of acute onset dizziness and subsequent fall reported by EMS as a stroke alert. The patient's comorbidities include a history of hypertension, hyperlipidemia, coronary artery disease, and carotid artery stenosis for which she is currently on aspirin and Plavix. On initial evaluation of the patient he appeared to be in acute distress but was overall nontoxic appearance. He is hypertensive, has a normal heart rate, is afebrile, and is alert and oriented with a GCS of 15. On my examination the patient will not open his eyes. He states that he is unable to do so because he feels so intensely dizzy and opening his eyes makes the symptoms worse. The patient has bilateral 5 strength in his bilateral upper and lower extremities. He has normal [id number] testing bilaterally. His cranial nerves are grossly intact. The patient will not open his eyes for me to examine for nystagmus, visual zheng, or extraocular movements. He has no drift of his extremities on examination. Speech is intact. Language is intact. Differential diagnosis includes ischemic stroke, large vessel occlusion, intracranial hemorrhage, among others. At this time I do have a very high suspicion that this patient could be having the posterior circulation stroke. Workup is initiated with immediate CT scans including a CT head without contrast and CTA of the head and neck. The patient also was initially reported to have had a fall at home so we decided to obtain full trauma scans to rule out traumatic injuries. An EKG was obtained and was personally interpreted by me. EKG demonstrates normal sinus rhythm at a rate of 65 bpm, normal axis, no AK prolongation, narrow QRS, no QTc prolongation. No ST elevation or depression. No overt signs of ischemia or arrhythmia. Labs were personally interpreted by me and demonstrate no leukocytosis or Transfusable anemia. PT/INR is within normal limits. He has no significant electrolyte derangements or evidence of acute kidney injury. CT scans of the head were first interpreted by me and demonstrate no large intracranial hemorrhages. Official radiology read states that there is no hemodynamically significant stenosis or intracranial abnormalities. Remainder of trauma CT scans as interpreted by radiology demonstrate no acute abnormalities. The patient has remained significantly dizzy while here in the emergency department and has been unable to open his eyes throughout the duration of his stay secondary to this dizziness. We have treated him with 2.5 mg of Valium and it has not improved his symptoms at all. We did PowerShare these images with [facility] and I spoke directly to their stroke navigator about my concerns for posterior circulation stroke. After our discussion he has agreed to accept the patient to their hospital under attending Dr. Anthony. Patient has remained hypertensive in the emergency department with a blood pressure of 200/90. We will tolerate blood pressure goals of 220 systolic before treating. Patient was ultimately transferred to [facility] in stable condition. Critical Care Critical Care Time Critical Care Time: No
--- NOTE | 2025-03-25 00:58 | PC.NURSE ---
report given to Kraig LOPEZ at [facility]
[2025-03-25 01:00] VITALS: BP 205/94; PULSE 75; RESP 17; O2SAT 96
[2025-03-25 01:27] VITALS: BP 202/98; PULSE 78; RESP 16; TEMP 36.7; O2SAT 100
== END 2025-03-25 01:30 | disposition other institution (70) ==
PROVIDERS: Student in an Organized Health Care Education/Training Program; Emergency Provider Emergency Medicine
DX: R42 Dizziness and giddiness (principal); I10 Essential (primary) hypertension; E78.5 Hyperlipidemia, unspecified; Z86.79 Personal history of other diseases of the circulatory system; Z95.5 Presence of coronary angioplasty implant and graft; W18.2XXA Fall in (into) shower or empty bathtub, initial encounter
CPT/HCPCS: 70450; 70496; 70498; 71275; 72125; 72128; 72131; 74174; 80053; 80061; 80320; 84484; 85025; 85610; 85730; 93005; 96365; 96366; 99285; J3360; Q9967